=== PATIENT | male | born 1970 | race African-American/Black ===

== ENCOUNTER 2020-10-13 12:53 | Outpatient (CLI) | payer MEDICARE, MEDICAID, SELFPAY ==
--- NOTE | ~2020-10-13 | US_ITS ---
EXAMINATION: US venous doppler LE RT EXAM DATE: 10/13/2020 13:37 INDICATION: Right leg pain and swelling. TECHNIQUE: Multiple grayscale, color flow and Doppler images of the right lower extremity deep venous system were obtained and reviewed. There is no prior study for comparison. FINDINGS: The right common femoral, femoral and profunda veins demonstrate normal color flow, respira tory variation, augmentation and compressibility. Compressibility, color flow confirmed within the r ight popliteal, posterior tibial, peroneal, and greater saphenous veins. IMPRESSION: 1. No right lower extremity deep venous thrombosis. Reviewed, dictated and finalized at location B. 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
== END 2020-10-13 12:54 | disposition home or self-care (01) ==
PROVIDERS: PCP Family Medicine; Visit Provider Physician Assistant Surgical
DX: M79.89 Other specified soft tissue disorders (principal)
CPT/HCPCS: 93971

== ENCOUNTER 2021-03-10 07:46 | Emergency (ER) | payer MEDICARE, MEDICAID, SELFPAY ==
[2021-03-10] VITALS (39 sets, daily range): BP systolic 98–147; BP diastolic 71–82; PULSE 72–88; RESP 12–37; TEMP 36.3–36.8; O2SAT 91–100
--- NOTE | ~2021-03-10 | CT_ITS ---
EXAMINATION: CTA chest PE abdomen pel DATE: 03/10/2021 12:18 INDICATION: Shortness of breath and cough, COVID 19, lower abdominal pain TECHNIQUE: Computed tomography angiography (CTA) of the chest was performed with 100 mL Omnipaque-350 intravenous contrast timed to evaluate the pulmonary arteries. Subsequent postcontrast images of the abdomen and pelvis are obtained. Coronal maximum intensity projection 3D-reconstructions were create d by the technologist. The dose-length product (DLP) was 2577.10 mGy-cm. Automated exposure control a nd iterative reconstruction technique were employed. COMPARISON: None. FINDINGS: CTA CHEST: The pulmonary arteries are well-opacified. No pulmonary embolism is identified. There are patchy groundglass opacities of the lungs. No pleural effusion or pneumothorax is identified. Althoug h evaluation is limited by streak artifact, there appears to be mild mediastinal and bilateral hilar lymphadenopathy, likely reactive. The heart size is normal. There are bridging osteophytes at multipl e levels in the thoracic spine, consistent with diffuse idiopathic skeletal hyperostosis (DISH). ABDOMEN/PELVIS CT: The liver, spleen, gallbladder, and adrenal glands are normal. There is fatty repl acement of much of the pancreas. The left kidney is unremarkable. There is a 1.7 cm cyst of the right kidney. No pathologically enlarged abdominal or pelvic lymph nodes are identified. There is no free intraperitoneal gas or evidence of bowel obstruction. There is a small amount of inflammatory change in the mid descending colon. There is severe lumbar spondylosis. IMPRESSION: 1. No pulmonary embolism. Groundglass opacities of the lungs, consistent with COVID 19 pneumonia. 2. Focal area of inflammatory change in the mid descending colon, likely diverticulitis. Reviewed, dictated and finalized at location A. IMPRESSION: 1. No pulmonary embolism. Groundglass opacities of the lungs, consistent with C OVID 19 pneumonia. 2. Focal area of inflammatory change in the mid descending colon, likely divert iculitis.
--- NOTE | ~2021-03-10 | XR_ITS ---
EXAMINATION: XR chest 1V portable DATE: 03/10/2021 08:54 INDICATION: COVID positive presenting with cough and shortness of breath TECHNIQUE: frontal view of the chest was obtained. COMPARISON: Chest radiograph dated 06/11/2013 FINDINGS: Small lung volumes. Airspace opacities in the left mid to lower lung zone and in the right infrahilar region, lateral with air bronchograms, suspicious for pneumonia. No pleural effusion or pneumothorax . Cardiomegaly. IMPRESSION: 1. Patchy airspace opacities in the left mid and bilateral lower lung zones concerning for pneumonia. Reviewed, dictated and finalized at location A. IMPRESSION: 1. Patchy airspace opacities in the left mid and bilateral lower lung zones con cerning for pneumonia.
--- NOTE | 2021-03-10 07:51 | ECG_ITS ---
Measurements Intervals [place] Rate: 84 P: 23 MI: 140 QRS: 20 QRSD: 80 T: 28 QT: 383 QTc: 453 Interpretive Statements SINUS RHYTHM EARLY PRECORDIAL R/S TRANSITION BASELINE ARTIFACT- I, II, III, AVF, V1-V6 BORDERLINE ECG Electronically Signed On 03-10-2021 8:10:18 CDT by Jose Price D.O.
[2021-03-10 08:10] LABS: Basophils Percent Auto 0.2 % (0.2-1.2); Hematocrit 41.9 % (42.0-52.0); Hemoglobin 13.8 g/dL (14.0-18.0); Immature Granulocyte Absolute 0.03 K/mm3 (0.00-0.031); Immature Granulocyte Percent A 0.5 % (0-0.5); Lymphocytes Percent Auto 31.7 % (18.3-44.2); Mean Corpuscular HGB Conc 32.9 g/dl (32-36); Mean Corpuscular Hemoglobin 30.2 pg (26-34); Mean Corpuscular Volume 91.7 fl (80-100); Mean Platelet Volume 12.1 fl (7.4-10.4); Monocytes Absolute Auto 0.5 K/mm3 (0.1-0.6); Monocytes Percent Auto 9.3 % (2.6-8.5); Neutrophils Absolute Auto 3.3 K/mm3 (1.3-6.7); Neutrophils Percent Auto 58.3 % (45.5-73.1); Platelet Count Result 123 k/mm3 (150-375); Red Blood Count 4.57 M/mm3 (4.6-6.20); Red Cell Distribution Width 13.5 % (11.5-14.5); White Blood Count 5.7 K/mm3 (4.5-10.0)
[2021-03-10 08:19] LABS: Anion Gap 12 mmol/L (8-16); Blood Urea Nitrogen 11 mg/dL (9-20); Calcium 8.7 mg/dL (8.4-10.2); Carbon Dioxide 18 mmol/L (22-30); Chloride 108 mmol/L (98-107); Estimated CRCL calculation 133 ml/min; Estimated Glomerular Filt Rate > 60; Glucose 122 mg/dL (65-110); Lactic Acid Reflex 1.4 mmol/L (0.7-2.1); Potassium 4.1 mmol/L (3.4-5.0); Sodium 138 mmol/L (137-145)
[2021-03-10] MEDS: ONDANSETRON INJ 4 MG/2 ML VIAL IV PUSH (09:54)
[2021-03-10] MEDS: SODIUM CHLORIDE 0.9% IV 1,000 ML 999 ML IV CONT (09:55)
[2021-03-10 10:03] LABS: Lipase 106 U/L (23-300)
--- NOTE | 2021-03-10 10:09 | ED.GENADULT ---
HPI - General Adult General Chief complaint: Shortness of Breath/Dyspnea Stated complaint: SOB Time Seen by Provider: 03/10/21 09:04 Source: patient History of Present Illness HPI narrative: Patient is a 51 y/o male complaining of bilateral lower abdominal pain, vomiting, diarrhea for 1 week. He describes his pain as sharp and rate it as 10/10. There is no pain radiation. There is no known alleviating or exacerbating factor. He also has cough and SOB. He tested positive for COVID on 03/01. Related Data Allergies Allergy/AdvReac Type Severity Reaction Status Date / Time No Known Allergies Allergy Verified 03/10/21 13:19 Review of Systems Constitutional: Constitutional: Denies chills, Denies fever(s), Denies headache(s) and Denies weakness Eyes: Eyes: Denies blurry vision ENT: Denies headache(s) and Denies neck pain Cardiovascular: Cardiovascular: Reports chest pain and Reports dyspnea Respiratory: Respiratory: Reports cough and Reports dyspnea Gastrointestinal: Gastrointestinal: Reports abdominal pain, Reports diarrhea, Reports nausea and Reports vomiting Genitourinary: Genitourinary: Denies hematuria and Denies dysuria Musculoskeletal: Musculoskeletal: Denies back pain and Denies neck pain Neurologic: Denies headache(s) and Denies weakness Exam Const: General: no acute distress and well developed Orientation/consciousness: oriented to person, oriented to place, oriented to time and patient oriented x3 HENMT: Head: normocephalic Ears: external ears normal General nose exam: Normal external nose present Eyes: General: appearance normal, both eyes and all related structures Conjunctivae: conjunctivae normal Neck: Neck: normal visual inspection and full ROM Chest: Chest palpation & inspection: normal inspection of the chest and no tenderness Resp: Effort & Inspection: normal respiratory effort Auscultation: clear to auscultation bilaterally Cardio: Rate: regular rate Rhythm: regular rhythm GI: GI Palp: No abdominal tenderness and Yes Soft to palpation Skin: General skin exam: normal color and turgor normal Neuro: General: oriented to person, oriented to place, oriented to time and patient oriented x3 Cognition (Neuro): normal cognition Extrem: General: normal to inspection, full ROM and no pedal edema Psych: Appearance: grossly normal Mental Status: mental status grossly normal Affect: normal affect Course Vital Signs Vital signs: Vital Signs Temperature 36.8 C 03/10/21 07:52 Pulse Rate 86 03/10/21 07:52 Respiratory Rate 37 H 03/10/21 07:52 Blood Pressure 147/79 H 03/10/21 07:52 Pulse Oximetry 97 03/10/21 07:52 Temperature 36.8 C 03/10/21 07:52 Pulse Rate 82 03/10/21 15:39 Respiratory Rate 22 H 03/10/21 15:39 Blood Pressure 98/75 L 03/10/21 15:39 Pulse Oximetry 98 03/10/21 15:39 Medical Decision Making Vital Signs Vital Signs: Vital Signs Temperature 36.8 C 03/10/21 07:52 Pulse Rate 86 03/10/21 07:52 Respiratory Rate 37 H 03/10/21 07:52 Blood Pressure 147/79 H 03/10/21 07:52 Pulse Oximetry 97 03/10/21 07:52 Temperature 36.8 C 03/10/21 07:52 Pulse Rate 82 03/10/21 15:39 Respiratory Rate 22 H 03/10/21 15:39 Blood Pressure 98/75 L 03/10/21 15:39 Pulse Oximetry 98 03/10/21 15:39 Lab Data Result diagrams: 03/10/21 08:00 03/10/21 08:00 Labs: Lab Results 03/10/21 03/10/21 03/10/21 Range/Units 08:00 08:00 08:00 WBC 5.7 (4.5-10.0) K/mm3 RBC 4.57 L (4.6-6.20) M/mm3 Hgb 13.8 L (14.0-18.0) g/dL Hct 41.9 L (42.0-52.0) % MCV 91.7 (80-100) fl MCH 30.2 (26-34) pg MCHC 32.9 (32-36) g/dl RDW 13.5 (11.5-14.5) % Plt Count 123 L (150-375) k/mm3 MPV 12.1 H (7.4-10.4) fl Immature Gran % (Auto) 0.5 (0-0.5) % Neut % (Auto) 58.3 (45.5-73.1) % Lymph % (Auto) 31.7 (18.3-44.2) % [place] % (Auto) 9.3 H (2.6-8.5) % Eos % (Auto) 0.0
[2021-03-10 11:03] LABS: D Dimer 0.63 ug/mL (<0.48)
[2021-03-10] MEDS: CIPROFLOXACIN 400 MG/D5W 200ML 200 ML 200 MG IVPB (14:29)
[2021-03-10] MEDS: ACETAMINOPHEN 325 MG TABLET 650 MG PO (14:29)
[2021-03-10] MEDS: metroNIDAZOLE 500 MG/ISO 100ML 500 MG/100 ML BAG 100 MG IVPB (15:39)
== END 2021-03-10 17:00 | disposition home or self-care (01) ==
PROVIDERS: Emergency Provider Emergency Medicine; PCP Internal Medicine Gastroenterology
DX: U07.1 COVID-19 (principal); J12.82 Pneumonia due to coronavirus disease 2019; K57.92 Diverticulitis of intestine, part unspecified, without perforation or abscess without bleeding
CPT/HCPCS: 36415; 71045; 71275; 74177; 80048; 83605; 83690; 85025; 85380; 87040; 93005; 96361; 96365; 96367; 96375; 99284; A9270; J0744; J2405; J7030; Q9967

== ENCOUNTER 2021-07-10 21:16 | Emergency (ER) | payer MEDICARE, MEDICAID, SELFPAY ==
--- NOTE | ~2021-07-10 | CT_ITS ---
EXAMINATION: CT abdomen pelvis w con DATE: 07/11/2021 03:08 INDICATION: Left lower quadrant abdominal pain. TECHNIQUE: Computed tomography (CT) of the abdomen and pelvis was performed with 100 mL Omnipaque 350 intravenous contrast. Automated exposure control and iterative reconstruction technique were employe d. The dose-length product was 1543.80 mGy-cm. COMPARISON: CT abdomen and pelvis 03/10/2021 FINDINGS: The visualized portions of the lung bases demonstrate mild atelectasis in left lower lobe. No pleural effusion. The heart size is normal. No pericardial effusion. The liver, spleen, pancreas, and adrenal glands are normal. There is a 19 mm cyst in right kidney. Left kidney is normal. There ar e scattered diverticula in the colon. There is fat stranding around a diverticulum of distal descendi ng colon, consistent with diverticulitis. There are no dilated loops of bowel. The appendix is not vi sualized. There are no pathologically enlarged lymph nodes. There is no free intraperitoneal fluid. T here is moderate lumbar spondylosis. There are bridging endplate osteophytes at multiple levels in th e thoracic spine, consistent with diffuse idiopathic skeletal hyperostosis (DISH). IMPRESSION: 1. Acute diverticulitis of distal descending colon. No perforation or abscess. Reviewed, dictated and finalized at location A. 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
[2021-07-10 21:34] VITALS: BP 152/93; PULSE 74; RESP 20; TEMP 36.3; O2SAT 98
[2021-07-11 02:00] VITALS: BP 138/88; PULSE 65; RESP 16; O2SAT 98
[2021-07-11 02:22] LABS: Basophils Percent Auto 0.4 % (0.2-1.2); Eosinophils Absolute Auto 0.1 K/mm3 (0-0.3); Eosinophils Percent Auto 1.5 % (0-4.4); Hematocrit 38.5 % (42.0-52.0); Hemoglobin 12.7 g/dL (14.0-18.0); Immature Granulocyte Absolute 0.01 K/mm3 (0.00-0.031); Immature Granulocyte Percent A 0.1 % (0-0.5); Lymphocytes Percent Auto 48.1 % (18.3-44.2); Mean Corpuscular Hemoglobin 32.1 pg (26-34); Mean Corpuscular Volume 97.2 fl (80-100); Mean Platelet Volume 11.8 fl (7.4-10.4); Monocytes Absolute Auto 0.8 K/mm3 (0.1-0.6); Monocytes Percent Auto 10.7 % (2.6-8.5); Neutrophils Absolute Auto 2.8 K/mm3 (1.3-6.7); Neutrophils Percent Auto 39.2 % (45.5-73.1); Platelet Count Result 203 k/mm3 (150-375); Red Blood Count 3.96 M/mm3 (4.6-6.20); Red Cell Distribution Width 14.1 % (11.5-14.5); White Blood Count 7.3 K/mm3 (4.5-10.0)
[2021-07-11 02:41] LABS: Alanine Aminotransferase 24 U/L (4-50); Albumin Level 4.3 g/dL (3.5-5.1); Alkaline Phosphatase 84 U/L (38-126); Anion Gap 7 mmol/L (8-16); Aspartate Amino Transferase 37 U/L (17-59); Bilirubin,Total 0.5 mg/dL (0.2-1.3); Blood Urea Nitrogen 18 mg/dL (9-20); Calcium 9.1 mg/dL (8.4-10.2); Carbon Dioxide 24 mmol/L (22-30); Chloride 107 mmol/L (98-107); Estimated CRCL calculation 141 ml/min; Estimated Glomerular Filt Rate > 60; Glucose 107 mg/dL (65-110); Lipase 81 U/L (23-300); Potassium 4.7 mmol/L (3.4-5.0); Sodium 138 mmol/L (137-145)
[2021-07-11] MEDS: SODIUM CHLORIDE 0.9% IV 1,000 ML 999 ML IV CONT (03:28)
[2021-07-11] MEDS: ONDANSETRON INJ 4 MG/2 ML VIAL IV PUSH (03:28)
[2021-07-11] MEDS: cefTRIAXone 1 GM VIAL 0.5 GM IM (03:29)
[2021-07-11] MEDS: LIDOCAINE HCL 1% LOCAL INJ 20 ML VIAL (03:29)
--- NOTE | 2021-07-11 03:53 | ED.ABDPAIN ---
HPI - Abdominal Pain General Chief Complaint: Abdominal Pain Stated Complaint: abd pain Time Seen by Provider: 07/11/21 02:27 Source: patient History of Present Illness HPI narrative: Patient presents with left lower quadrant abdominal pain associated with diarrhea. Patient reports his symptoms started last night and feels similar to his prior diverticulitis. Pain is achy, constant, worse with moving around, no radiation. Patient would also like to be evaluated for pain with urination. Reports he is had unprotected sex with a new partner and few days after he noted pain with urination has not noted any urethral discharge. He denies any nausea vomiting or fevers. Related Data Allergies Allergy/AdvReac Type Severity Reaction Status Date / Time No Known Allergies Allergy Verified 07/10/21 21:38 Review of Systems Review of Systems: CONSTITUTIONAL: Denies fever, chills, or sweats. EYES: Denies visual changes, redness, or discharge. ENT: Denies rhinorrhea, congestion, sore throat, or otalgia. CARDIOVASCULAR: Denies chest pain, palpitations, or edema. RESPIRATORY: Denies cough or dyspnea. GASTROINTESTINAL: Reports abdominal pain and diarrhea GENITOURINARY: Denies hematuria. SKIN: Denies rash or itching. MUSCULOSKELETAL: Denies back pain, joint pain, or myalgia. NEUROLOGIC: Denies headache, numbness, dizziness, or weakness. PSYCHIATRIC: Denies anxiety or depression. All systems reviewed & are unremarkable except as noted in HPI and below PMFSH Past Medical History Medical History (Updated 07/11/21 @ 06:09 by Bonilla Ward MD) Diverticulitis Social History Social History (Updated 07/11/21 @ 03:55 by Bonilla Ward MD) Substance use: never Exam Narrative: GENERAL: Well-appearing, well-nourished, and in no acute distress. HEAD: Normocephalic, atraumatic. EYES: PERRLA and EOMI. ENT: Nares clear, no rhinorrhea or epistaxis. Mucous membranes moist. NECK: Supple. No masses. No JVD CHEST: Clear to auscultation. No respiratory distress. No wheezes rales or rhonchi HEART: Regular rate and rhythm. No murmur heard. Normal peripheral pulses. ABDOMEN: Moderate tenderness with palpation of the left lower quadrant soft, nondistended, normal active bowel sounds. : Mild tenderness with palpation of the head of the penis no edema no erythema no purulent discharge no ulcerations EXTREMITIES: Normal range of motion. No edema. SKIN: Warm, dry, no rash. NEURO: No focal deficits. Alert and oriented x3. PSYCH: Normal mood and affect. Course Reevaluation(s) Reevaluation #1: Patient is resting comfortably results and plan reviewed with patient. Patient comfortable outpatient plan. Date: 07/11/21 Time: 06:05 Vital Signs Vital signs: Vital Signs Temperature 36.3 C L 07/10/21 21:34 Pulse Rate 74 07/10/21 21:34 Respiratory Rate 20 07/10/21 21:34 Blood Pressure 152/93 H 07/10/21 21:34 Pulse Oximetry 98 07/10/21 21:34 Temperature 36.3 C L 07/10/21 21:34 Pulse Rate 73 07/11/21 06:15 Respiratory Rate 18 07/11/21 06:15 Blood Pressure 132/85 07/11/21 06:15 Pulse Oximetry 99 07/11/21 06:15 MDM - Abdominal Pain MDM Narrative Medical decision making narrative: H&P as above, vss, pt looks clinically well, exam with left lower quadrant abdominal pain, labs clinically unremarkable, img with acute diverticulitis, additional labs/img considered, symptomatic relief available as needed, on reevaluation pt continues to looks clinically well. Suspect diverticulitis. Patient is also concerned about his dysuria will treat empirically, dns perforation, abscess, severe sepsis. plan to tx/monitor as op w/ pcm f/u findings/plan discussed with pt, pt agree/comfortable with plan, return precautions given Lab Data Result diagrams: 07/11/21 02:16 07/11/21 02:17 Labs: Lab Results 07/11/21 07/11/21 07/11/21 Range/Units 02:16 02:17 03:12 WBC 7.3 (4.5-10.0) K/mm3 RBC 3.96 L
[2021-07-11 04:08] LABS: Add Urine Microscopic? YES; Appearance Urine Clear (Clear); Bilirubin Urine Negative (Negative); Blood Urine Negative (Negative); Color Urine Yellow (Yellow); Glucose Urine UA Negative (Negative); Ketones Urine Negative (Negative); Leukocyte Esterase Ur Trace LEU/UL (Negative); Mucus Urine Rare /lpf; Nitrate Urine Negative (Negative); Protein Urine Negative (Negative); RBC Urine 0-2 /hpf (0-2); Specific Grav Ur 1.026 (1.001-1.035); Squamous Epithelial Cell Urine Rare /hpf (Few); Urobilinogen Urine Negative mg/dL (<2.0)
[2021-07-11 04:34] VITALS: BP 137/91; PULSE 73; RESP 18; O2SAT 100
[2021-07-11 06:15] VITALS: BP 132/85; PULSE 73; RESP 18; O2SAT 99
== END 2021-07-11 06:16 | disposition home or self-care (01) ==
PROVIDERS: Emergency Provider Emergency Medicine; PCP Internal Medicine Gastroenterology
DX: K57.92 Diverticulitis of intestine, part unspecified, without perforation or abscess without bleeding (principal); R30.0 Dysuria; Z87.19 Personal history of other diseases of the digestive system
CPT/HCPCS: 36415; 74177; 80053; 81001; 83690; 85025; 87491; 87591; 96361; 96372; 96374; 99284; J0696; J2405; J7030; Q9967

== ENCOUNTER 2022-02-25 08:29 | Emergency (ER) | payer MEDICARE, MEDICAID, SELFPAY ==
[2022-02-25] VITALS (25 sets, daily range): BP systolic 119–145; BP diastolic 81–90; PULSE 63–72; RESP 0–23; TEMP 36.9; O2SAT 97–100
--- NOTE | ~2022-02-25 | CT_ITS ---
EXAMINATION: CTA chest abdomen pelvis DATE: 02/25/2022 11:16 INDICATION: Worsening chest and abdomen pain TECHNIQUE: Computed tomography (CT) of the chest, abdomen and pelvis was performed with 100 CC Omnipa que 300 intravenous contrast. Automated exposure control and iterative reconstruction technique were employed. Exam dose: 1769.85 mGy-cm total exam DLP. COMPARISON: None. FINDINGS: Mild gynecomastia, right greater than left. Normal heart size. No pericardial or pleural effusion. No thoracic aortic aneurysm or dissection. No hilar or mediastinal mass lesion or lymphadenopathy. No pulmonary infiltrate or consolidation or pulmonary mass lesion is detected. 5 mm probable right hepatic cyst. The liver is otherwise unremarkable. The gallbladder is present. No gallbladder wall thickening or pericholecystic fluid or fat stranding. No bile duct dilatation. No p ancreatic mass lesion, calcification or ductal dilatation. Normal splenic size. Normal morphology of the adrenal glands. 2.1 cm right renal cyst. The kidneys are otherwise unremarkable. No urinary tract calculus or hydrour eteronephrosis. The urinary bladder is unremarkable. Mild prostate calcification. Normal caliber of the abdominal aorta. No abdominal aortic aneurysm or dissection. No intraperitoneal or retroperitoneal or pelvic mass lesion or adenopathy or ascites. Minimal diverticulosis of the colon. There is some fat stranding in the pericolic soft tissues at the mid to distal descending colon which may represent mild focal diverticulitis. No abscess or free air is detected. Prominent degenerative disc disease in the lower cervical spine. Diffuse idiopathic skeletal hyperost osis of the thoracic spine. Fusion at the L3-4 intervertebral disc. Degenerative disc disease of the lumbar spine. No suspicious osteolytic or osteoblastic lesions are noted. IMPRESSION: No thoracic or abdominal aortic aneurysm or dissection Mild pericolic fat stranding at the mid to distal descending colon suggesting possible mild diverticu litis Mild diverticulosis of the colon 5 mm hepatic cyst 2.1 cm right renal cyst Reviewed, dictated and finalized at Location [facility]. Reviewed, dictated and finalized at location B. IMPRESSION: No thoracic or abdominal aortic aneurysm or dissection Mild pericolic fat stranding at the mid to distal descending colon suggesting p ossible mild diverticulitis Mild diverticulosis of the colon 5 mm hepatic cyst 2.1 cm right renal cyst
--- NOTE | ~2022-02-25 | XR_ITS ---
EXAMINATION: XR chest 2V 02/25/2022 09:14 INDICATION: Midsternal chest pain PROCEDURE: 2 view chest COMPARISON: 03/10/2021 FINDINGS: The lungs are clear. The cardiomediastinal silhouette is within normal limits. There are no pleural effusions. There is no pneumothorax suspected. IMPRESSION: 1: NO ACUTE CARDIOPULMONARY DISEASE. Reviewed, dictated and finalized at location L.
--- NOTE | 2022-02-25 08:38 | ECG_ITS ---
Measurements Intervals [place] Rate: 69 P: 45 MS: 163 QRS: 26 QRSD: 84 T: 25 QT: 383 QTc: 413 Interpretive Statements SINUS RHYTHM NONSPECIFIC T-WAVE ABNORMALITY- INF/LAT LEADS BASELINE ARTIFACT- I, II, III, AVR, AVL, AVF, V3-V6 BORDERLINE ECG Electronically Signed On 02-25-2022 9:48:28 CDT by Jose Price D.O.
[2022-02-25 09:00] LABS: Basophils Percent Auto 0.8 % (0.2-1.2); Eosinophils Percent Auto 0.4 % (0-4.4); Hematocrit 40.8 % (42.0-52.0); Immature Granulocyte Absolute 0.01 K/mm3 (0.00-0.031); Immature Granulocyte Percent A 0.2 % (0-0.5); Lymphocytes Absolute Auto 2.62 K/mm3 (0.9-3.2); Lymphocytes Percent Auto 50.8 % (18.3-44.2); Mean Corpuscular HGB Conc 31.9 g/dl (32-36); Mean Corpuscular Hemoglobin 30.7 pg (26-34); Mean Corpuscular Volume 96.5 fl (80-100); Monocytes Absolute Auto 0.6 K/mm3 (0.1-0.6); Monocytes Percent Auto 12.2 % (2.6-8.5); Neutrophils Absolute Auto 1.8 K/mm3 (1.3-6.7); Neutrophils Percent Auto 35.6 % (45.5-73.1); Platelet Count Result 210 k/mm3 (150-375); Red Blood Count 4.23 M/mm3 (4.6-6.20); Red Cell Distribution Width 13.3 % (11.5-14.5); White Blood Count 5.2 K/mm3 (4.5-10.0)
[2022-02-25 09:10] LABS: Alanine Aminotransferase 24 U/L (6-50); Albumin Level 4.3 g/dL (3.5-5.1); Alkaline Phosphatase 72 U/L (38-126); Anion Gap 5 mmol/L (8-16); Aspartate Amino Transferase 32 U/L (17-59); Bilirubin,Total 0.7 mg/dL (0.2-1.3); Blood Urea Nitrogen 13 mg/dL (9-20); Calcium 8.7 mg/dL (8.4-10.2); Carbon Dioxide 27 mmol/L (22-30); Chloride 108 mmol/L (98-107); Estimated CRCL calculation 147 ml/min; Estimated Glomerular Filt Rate > 60; Glucose 102 mg/dL (65-110); Lipase 73 U/L (23-300); Sodium 140 mmol/L (137-145)
[2022-02-25 09:12] LABS: INR 1.1; Prothrombin Time 13.7 Seconds (11.1-14.7)
[2022-02-25 09:13] LABS: Partial Thromboplastin Time 29.2 SECONDS (22.3-36.8)
[2022-02-25 09:22] LABS: Troponin I < 0.012 ng/mL (0.000-0.034)
--- NOTE | 2022-02-25 10:51 | ED.CHESTPAIN ---
HPI - Chest Pain General Chief Complaint: Chest Pain Stated Complaint: ABD Pain, Chest Pain Yesterday Time Seen by Provider: 02/25/22 08:47 Source: patient, RN notes reviewed and old records reviewed Mode of arrival: ambulatory Limitations: no limitations History of Present Illness HPI narrative: This is a 52 year old male with history of hypertension, chronic back pain, and ulcerative colitis who presents for evaluation of chest pain and abdominal pain. Patient has been having intermittent midsternal chest tightness since Tuesday. He reports his chest pain will last for a few minutes and it will resolve. He denies pain with exertion or breathing. He denies shortness of breath. He also reports lower abdominal pain . He states this pain is similar to his chronic pain due to ulcerative colitis/diverticulitis. He denies nausea, vomiting, fever, cough or diarrhea. He denies leg swelling or calf pain. He denies heart history. MD complaint: chest pain Related Data Allergies Allergy/AdvReac Type Severity Reaction Status Date / Time No Known Allergies Allergy Verified 02/25/22 08:42 Review of Systems Review of Systems: CONSTITUTIONAL: Denies fever, chills, or sweats. EYES: Denies visual changes, redness, or discharge. ENT: Denies rhinorrhea, congestion, sore throat, or otalgia. CARDIOVASCULAR: Denies palpitations, or edema. RESPIRATORY: Denies cough or dyspnea. GASTROINTESTINAL: Denies nausea, vomiting, or diarrhea. GENITOURINARY: Denies dysuria or hematuria. SKIN: Denies rash or itching. MUSCULOSKELETAL: Denies back pain, joint pain, or myalgia. NEUROLOGIC: Denies headache, numbness, or weakness. PSYCHIATRIC: Denies anxiety or depression. All systems reviewed & are unremarkable except as noted in HPI and below PMFSH Past Medical History Medical History (Updated 02/25/22 @ 19:15 by Ericka Alicia MD) Diverticulitis Hypertension Surgical History Surgical History (Updated 02/25/22 @ 19:16 by Ericka Alicia MD) No pertinent past surgical history Social History Social History (Updated 02/25/22 @ 19:16 by Ericka Alicia MD) Smoking status: Never smoker Substance use: never Exam Narrative: GENERAL: Well-appearing, well-nourished, and in no acute distress. HEAD: Normocephalic, atraumatic EYES: PERRLA and EOMI, conjunctiva clear without discharge EARS: TM's clear bilaterally without erythema or dullness NOSE: Nares clear, no rhinorrhea or epistaxis THROAT:Mucous membranes moist, Oropharynx normal without erythema, exudate, peritonsillar swelling or fluctuance NECK: Supple, without lymphadenopathy or mass RESPIRATORY: No respiratory distress, Airway patent, Respirations non-labored, Clear to auscultation without rales, rhonchi or wheeze HEART: Regular rate and rhythm. No murmur heard. Normal peripheral pulses. ABDOMEN: Soft,LLQ abdominal pain, nondistended, normal active bowel sounds. No masses. No rebound or guarding, No organomegaly. EXTREMITIES: No edema, normal strength with full range of motion. SKIN: Warm, dry, normal color without rash NEURO: Alert and oriented x3. CN 2-12 grossly intact. No focal deficits. PSYCH: Normal mood and affect. Course Reevaluation(s) Reevaluation #1: Patient has no complaints. He does not have chest pain. His pain is atypical and not anginal. His CT shows diverticulitis but no Aortic aneuryms or dissection. Heart score is low risk so I discussed discharge and he will need to follow up with PCP. Date: 02/25/22 Time: 12:49 Vital Signs Vital signs: Vital Signs Temperature 98.5 F 02/25/22 08:33 Pulse Rate 71 02/25/22 08:33 Respiratory Rate 12 02/25/22 08:33 Blood Pressure 136/81 02/25/22 08:33 Pulse Oximetry 99 02/25/22 08:33 Oxygen Delivery Room Air 02/25/22 08:33 Temperature 98.5 F 02/25/22 08:33 Pulse Rate 69 02/25/22 13:00 Respiratory Rate 13 02/25/22 13:00 Blood Pressure 138/90 02/25/22 13:00
[2022-02-25 12:06] LABS: Troponin I < 0.012 ng/mL (0.000-0.034)
== END 2022-02-25 14:08 | disposition home or self-care (01) ==
PROVIDERS: Emergency Provider General Practice; PCP Internal Medicine Gastroenterology
DX: R07.89 Other chest pain (principal); K57.32 Diverticulitis of large intestine without perforation or abscess without bleeding; I10 Essential (primary) hypertension; K51.90 Ulcerative colitis, unspecified, without complications; K57.90 Diverticulosis of intestine, part unspecified, without perforation or abscess without bleeding; K76.89 Other specified diseases of liver; N28.1 Cyst of kidney, acquired; R94.31 Abnormal electrocardiogram [ECG] [EKG]
CPT/HCPCS: 36415; 71046; 71275; 74174; 80053; 83690; 84484; 85025; 85610; 85730; 93005; 99284; Q9967

== ENCOUNTER 2022-10-22 07:39 | Emergency (ER) | payer MEDICARE, MEDICAID, SELFPAY ==
--- NOTE | ~2022-10-22 | CT_ITS ---
EXAMINATION: CT abdomen pelvis w con DATE: 10/22/2022 08:57 INDICATION: Abdominal pain TECHNIQUE: Computed tomography (CT) of the abdomen and pelvis was performed with 100 mL Omnipaque-350 intravenous contrast. Automated exposure control and iterative reconstruction technique were employe d. The dose-length product was 1557.99 mGy-cm. COMPARISON: 02/25/2022, 07/11/2021 and 03/10/2021 FINDINGS: 1 lungs are clear. Heart size is normal. No pericardial or pleural effusion. Liver, gallbladder, sple en, left kidney and bilateral adrenal glands are normal. 1.9 cm right renal cyst. Moderate fatty atro phy of the pancreas. No interval change in mild fat stranding associated with a diverticulum at the m id descending colon which is minimal remained unchanged on multiple CT studies dating back to likely representing scarring related to chronic diverticulitis. Bowels including the appendix are o therwise normal. Bladder is normal. No free intraperitoneal gas or fluid. No pathologically enlarged abdominal or pelvic lymphadenopathy. Moderate thoracolumbar spondylosis with bridging osteophytes at multiple levels in the lower thoracic spine, consistent with diffuse idiopathic skeletal hyperostosis (DISH) as well as anterior fusion at L4-L5. IMPRESSION: 1. Stable appearance of mild stranding associated with a diverticulum at the mid descending colon on multiple studies dating back to 03/10/2021 which would favor scarring related to chronic rather than ac kiana diverticulitis. No other acute intra-abdominal/pelvic process. Reviewed, dictated and finalized at location B. IMPRESSION: 1. Stable appearance of mild stranding associated with a diverticulum at the mi d descending colon on multiple studies dating back to 03/10/2021 which would favo r scarring related to chronic rather than acute diverticulitis. No other acute intra-abdominal/pelvic process.
[2022-10-22 07:42] VITALS: BP 116/70; PULSE 63; RESP 16; TEMP 36.4; O2SAT 100
--- NOTE | 2022-10-22 08:10 | ED.ABDPAIN ---
HPI - Abdominal Pain General Chief Complaint: Abdominal Pain Stated Complaint: abdominal pain- colitis Time Seen by Provider: 10/22/22 08:00 Source: RN notes reviewed History of Present Illness HPI narrative: Patient presents emergency department from home for abdominal pain. Patient states pain began approximately 2 AM this morning. The pain is located the bilateral lower abdomen worse in the left side than the right.. States the pain is described as sharp and stabbing. It is associate with nausea. Patient states he does have a history of diverticulitis. States he has not taken anything for the pain. States that there is no radiation of the pain to the back he denies having any diarrhea Related Data Allergies Allergy/AdvReac Type Severity Reaction Status Date / Time No Known Allergies Allergy Verified 10/22/22 08:01 Review of Systems Review of Systems: Gen.: Denies fevers or chills ENT: Denies congestion Respiratory: Denies shortness of breath or cough CV: Denies chest pain or palpitations GI: See HPI Musculoskeletal: Denies back pain or muscle pain Neuro: Denies numbness, tingling, weakness or focal weakness Skin: Denies rash Except as documented, all other systems reviewed and negative [facility] Past Medical History Medical History Diverticulitis Hypertension Surgical History Surgical History (Updated 02/25/22 @ 19:16 by Ericka Alicia MD) No pertinent past surgical history Social History Social History Smoking status: Never smoker Substance use: never Exam Narrative: APPEARANCE: No acute distress, nontoxic, resting in bed EYES: EOMI HEENT: Normocephalic, atraumatic, OMM RESPIRATORY: No respiratory distress Clear to auscultation bilaterally with no rhonchi wheezing or rales. CARDIOVASCULAR: Regular rate and rhythm without murmurs rubs or gallops. ABDOMINAL: Soft, nondistended, tender to palpation left lower quadrant and right lower quadrant no tenderness in the right upper quadrant left upper quadrant no rebound or guarding MUSCULOSKELETAl: Moves all extremities. No clubbing, cyanosis or edema. NEURO: Awake and alert. Following commands, speech normal, no focal deficits SKIN:: Warm, dry. No rashes lesions or abrasions PSYCHIATRIC: Normal affect/mood, Course Course Emergency Course: Patient states that they are feeling much better at this time. States abdominal pain has improved. Repeat abdominal exam shows the patient's abdomen to be soft with no surgical abdomen present. Discussed with patient results of workup and diagnosis. Discussed need for follow-up with primary care physician, reasons to return to the emergency department in proper use of medication. Patient understands and agrees to current treatment plan Vital Signs Vital signs: Vital Signs Temperature 97.6 F 10/22/22 07:42 Pulse Rate 63 10/22/22 07:42 Respiratory Rate 16 10/22/22 07:42 Blood Pressure 116/70 10/22/22 07:42 Pulse Oximetry 100 10/22/22 07:42 Oxygen Delivery Room Air 10/22/22 07:42 Temperature 97.6 F 10/22/22 07:42 Pulse Rate 63 10/22/22 07:42 Respiratory Rate 16 10/22/22 07:42 Blood Pressure 116/70 10/22/22 07:42 Pulse Oximetry 100 10/22/22 07:42 Oxygen Delivery Room Air 10/22/22 07:42 MDM - Abdominal Pain MDM Narrative Medical decision making narrative: Patient presents for abdominal pain since 2 AM this morning history of diverticulitis.. States he does see a GI doctor and [place] Dr. Godinez. Lab work is within normal CT scan does show some chronic inflammation which could be chronic versus acute diverticulitis with history of acute pain since last night we will treat with Augmentin for diverticulitis with plan for discharge and follow-up as an outpatient the abdomen is soft no surgical on present strict return precautions discussed Differential Diagnosis Di
[2022-10-22 08:11] LABS: Appearance Urine Clear (Clear); Bacteria Urine None Seen /hpf; Bilirubin Urine Negative (Negative); Blood Urine Negative (Negative); Color Urine Dark Yellow (Yellow); Glucose Urine UA Negative (Negative); Ketones Urine Trace mg/dL (Negative); Leukocyte Esterase Ur Negative LEU/UL (Negative); Nitrate Urine Negative (Negative); Non Pathogenic Casts 0-2; Protein Urine Trace mg/dL (Negative); RBC Urine 0-2 /hpf (0-2); Specific Grav Ur 1.027 (1.001-1.035); Squamous Epithelial Cell Urine None seen /hpf (Few); WBC Urine 0-5 /hpf
[2022-10-22] MEDS: SODIUM CHLORIDE 0.9% IV 1,000 ML 999 ML IV CONT (08:18)
[2022-10-22] MEDS: ONDANSETRON INJ 4 MG/2 ML VIAL IV PUSH (08:19)
[2022-10-22] MEDS: KETOROLAC 30 MG/ML VIAL (*BKC) IV PUSH (08:19)
[2022-10-22 08:22] LABS: Alanine Aminotransferase 24 U/L (6-50); Albumin Level 4.4 g/dL (3.5-5.1); Alkaline Phosphatase 72 U/L (38-126); Anion Gap 8 mmol/L (8-16); Aspartate Amino Transferase 31 U/L (17-59); Bilirubin,Total 0.6 mg/dL (0.2-1.3); Blood Urea Nitrogen 17 mg/dL (9-20); Calcium 8.9 mg/dL (8.4-10.2); Carbon Dioxide 28 mmol/L (22-30); Chloride 104 mmol/L (98-107); Estimated CRCL calculation 127 ml/min; Estimated Glomerular Filt Rate > 60; Glucose 91 mg/dL (65-110); Lipase 127 U/L (23-300); Potassium 4.3 mmol/L (3.4-5.0); Sodium 140 mmol/L (137-145)
[2022-10-22 08:28] LABS: Add Urine Microscopic? YES
[2022-10-22 08:37] LABS: Basophils Percent Auto 0.4 % (0.2-1.2); Eosinophils Absolute Auto 0.1 K/mm3 (0-0.3); Eosinophils Percent Auto 0.7 % (0-4.4); Hematocrit 40.5 % (42.0-52.0); Immature Granulocyte Absolute 0.01 K/mm3 (0.00-0.031); Immature Granulocyte Percent A 0.1 % (0-0.5); Lymphocytes Absolute Auto 3.75 K/mm3 (0.9-3.2); Lymphocytes Percent Auto 46.8 % (18.3-44.2); Mean Corpuscular HGB Conc 32.1 g/dl (32-36); Mean Corpuscular Hemoglobin 31.5 pg (26-34); Mean Corpuscular Volume 98.1 fl (80-100); Monocytes Absolute Auto 0.9 K/mm3 (0.1-0.6); Monocytes Percent Auto 11.7 % (2.6-8.5); Neutrophils Absolute Auto 3.2 K/mm3 (1.3-6.7); Neutrophils Percent Auto 40.3 % (45.5-73.1); Platelet Count Result 218 k/mm3 (150-375); Red Blood Count 4.13 M/mm3 (4.6-6.20)
[2022-10-22] MEDS: AMOXICILLIN/CLAVULANATE K 875-125 MG TAB 1 TABLET PO (09:26)
== END 2022-10-22 09:37 | disposition home or self-care (01) ==
PROVIDERS: Emergency Provider Emergency Medicine; PCP Internal Medicine Gastroenterology
DX: K57.92 Diverticulitis of intestine, part unspecified, without perforation or abscess without bleeding (principal); I10 Essential (primary) hypertension
CPT/HCPCS: 36415; 74177; 80053; 81001; 83690; 85025; 96361; 96374; 96375; 99284; A9270; J1885; J2405; J7030; Q9967

== ENCOUNTER 2023-06-21 07:49 | Inpatient (IN) | payer MEDICARE, MEDICAID, SELFPAY ==
[2023-06-21] VITALS (7 sets, daily range): BP systolic 118–148; BP diastolic 72–83; PULSE 66–83; RESP 16–20; TEMP 36.3–36.6; O2SAT 92–99
--- NOTE | ~2023-06-21 | CT_ITS ---
EXAMINATION: CT abdomen pelvis w con DATE: 06/21/2023 10:01 INDICATION: Left abdominal pain. TECHNIQUE: Computed tomography (CT) of the abdomen and pelvis was performed with 100 mL Omnipaque 350 intravenous contrast. Automated exposure control and iterative reconstruction technique were employe d. The dose-length product was 1727.84 mGy-cm. COMPARISON: CT abdomen and pelvis 10/22/2022 FINDINGS: The visualized portions of the lung bases demonstrate mild atelectasis. No pleural effusion . The heart size is normal. No pericardial effusion. The liver, gallbladder, spleen, pancreas, adrena l glands, and left kidney are normal. There is a 2.4 cm cyst in right kidney. Again seen is a 5 mm de nsity in the descending colon. Again seen is fat stranding around the descending colon in this area. The appendix is normal. There are dilated loops of bowel with gradual transition point in right abdom en. There are no pathologically enlarged lymph nodes. There is no free intraperitoneal fluid. There a re bridging endplate osteophytes at multiple levels in the spine, consistent with diffuse idiopathic skeletal hyperostosis (DISH). There is moderate lumbar spondylosis. IMPRESSION: 1. Dilated small bowel with gradual transition point in right abdomen, consistent with adynamic ileus versus partial small bowel obstruction. 2. Chronic 5 mm density in the descending colon with chronic fat stranding around this area, consiste nt with inflammation versus scarring. Reviewed, dictated and finalized at location A. FRAME DEVELOPER IMPRESSION: 1. Dilated small bowel with gradual transition point in right abdomen, consiste nt with adynamic ileus versus partial small bowel obstruction. 2. Chronic 5 mm density in the descending colon with chronic fat stranding arou nd this area, consistent with inflammation versus scarring.
--- NOTE | ~2023-06-21 | XR_ITS ---
EXAMINATION: XR sm bowel follow through WS DATE: 06/21/2023 17:50 INDICATION: Small bowel obstruction. TECHNIQUE: Oral contrast was administered, and a time course of radiographs of the abdomen was obtain ed. Fluoroscopy of the small bowel was not performed. Fluoroscopy exposure time was 0 minutes. The to mamta number of images was 8. COMPARISON: CT abdomen and pelvis 06/21/2023 FINDINGS: There are multiple dilated loops of small bowel. Transit time from the stomach to proximal colon was approximately 4 hours. IMPRESSION: 1. Dilated small bowel with delayed transit of contrast to the colon, consistent with adynamic ileus versus partial small bowel obstruction. Reviewed, dictated and finalized at location A. NEER CHIEF IMPRESSION: 1. Dilated small bowel with delayed transit of contrast to the colon, consisten t with adynamic ileus versus partial small bowel obstruction.
--- NOTE | ~2023-06-21 | XR_ITS ---
EXAMINATION: XR abdomen obstructive series DATE: 06/23/2023 09:45 INDICATION: Small bowel obstruction. TECHNIQUE: Upright and supine views of the abdomen on 5 radiographs were obtained. COMPARISON: CT abdomen and pelvis 06/21/2023, small bowel series 06/21/2023 FINDINGS: There are dilated loops of small bowel in right abdomen. There is contrast in the colon, wh ich is decompressed. No free intraperitoneal gas. IMPRESSION: 1. Dilated small bowel with improvement from 06/21/2023, consistent with adynamic ileus versus partia l small bowel obstruction. Reviewed, dictated and finalized at location A. E HALL HOST/HOSTESS IMPRESSION: 1. Dilated small bowel with improvement from 06/21/2023, consistent with adynam ic ileus versus partial small bowel obstruction.
[2023-06-21 08:35] LABS: Appearance Urine Clear (Clear); Bacteria Urine None Seen /hpf; Bilirubin Urine Negative (Negative); Blood Urine Negative (Negative); Color Urine Yellow (Yellow); Glucose Urine UA Negative (Negative); Ketones Urine Negative (Negative); Leukocyte Esterase Ur Trace LEU/UL (Negative); Nitrate Urine Negative (Negative); Non Pathogenic Casts 0-2; Protein Urine 2+ mg/dL (Negative); Specific Grav Ur 1.027 (1.001-1.035); Squamous Epithelial Cell Urine None seen /hpf (Few); WBC Urine 0-5 /hpf; pH Urine >=9.0 (5.0-9.0)
[2023-06-21 08:36] LABS: Basophils Percent Auto 0.3 % (0.2-1.2); Eosinophils Percent Auto 0.2 % (0-4.4); Hematocrit 43.1 % (42.0-52.0); Hemoglobin 14.3 g/dL (14.0-18.0); Immature Granulocyte Absolute 0.01 K/mm3 (0.00-0.031); Immature Granulocyte Percent A 0.2 % (0-0.5); Lymphocytes Absolute Auto 2.01 K/mm3 (0.9-3.2); Mean Corpuscular HGB Conc 33.2 g/dl (32-36); Mean Corpuscular Hemoglobin 31.1 pg (26-34); Mean Corpuscular Volume 93.7 fl (80-100); Mean Platelet Volume 11.8 fl (7.4-10.4); Monocytes Absolute Auto 0.5 K/mm3 (0.1-0.6); Monocytes Percent Auto 7.3 % (2.6-8.5); Platelet Count Result 233 k/mm3 (150-375); Red Cell Distribution Width 13.7 % (11.5-14.5); White Blood Count 6.5 K/mm3 (4.5-10.0)
[2023-06-21 08:45] LABS: Alanine Aminotransferase 24 U/L (6-50); Albumin Level 4.6 g/dL (3.5-5.1); Alkaline Phosphatase 86 U/L (38-126); Anion Gap 12 mmol/L (8-16); Aspartate Amino Transferase 29 U/L (17-59); Blood Urea Nitrogen 17 mg/dL (9-20); Calcium 9.3 mg/dL (8.4-10.2); Carbon Dioxide 28 mmol/L (22-30); Chloride 102 mmol/L (98-107); Estimated CRCL calculation 143 ml/min; Estimated Glomerular Filt Rate > 60; Glucose 134 mg/dL (65-110); Lipase 81 U/L (23-300); Potassium 3.5 mmol/L (3.4-5.0); Sodium 142 mmol/L (137-145)
[2023-06-21 09:00] LABS: Add Urine Microscopic? YES
[2023-06-21] MEDS: SODIUM CHLORIDE 0.9% IV 1,000 ML 999 ML IV CONT (09:36)
[2023-06-21] MEDS: ONDANSETRON INJ 4 MG/2 ML VIAL IV PUSH ×2 (09:36→12:52)
--- NOTE | 2023-06-21 09:36 | ED.GENADULT ---
HPI - General Adult General Chief complaint: Abdominal Pain Stated complaint: N/V - history of colitis Time Seen by Provider: 06/21/23 08:53 History of Present Illness HPI narrative: Jin Espinal is a 53 y/o male who presents with reports of waking up from his sleep last night with left lower abdominal pain at 2300. He states that the pain seems to be getting worse and now he is having nausea/vomiting with his pain. Last BM was yesterday no previous surgeries on his abdomen but reports he has had colitis before and this feels similar. Denies fever/chills Related Data Allergies Allergy/AdvReac Type Severity Reaction Status Date / Time No Known Allergies Allergy Verified 10/22/22 08:01 Review of Systems Review of Systems: CONSTITUTIONAL: Denies fever, chills, or sweats. EYES: Denies visual changes, redness, or discharge. ENT: Denies rhinorrhea, congestion, sore throat, or otalgia. CARDIOVASCULAR: Denies chest pain, palpitations, or edema. RESPIRATORY: Denies cough or dyspnea. GASTROINTESTINAL: Reports abdominal pain to the left lower quadrant that started last night at 2300 now having nausea with vomiting, Last BM was yesterday. GENITOURINARY: Denies dysuria or hematuria. SKIN: Denies rash or itching. MUSCULOSKELETAL: Denies back pain, joint pain, or myalgia. NEUROLOGIC: Denies headache, numbness, dizziness, or weakness. PSYCHIATRIC: Denies anxiety or depression. PMFSH Past Medical History Medical History Diverticulitis Hypertension Surgical History Surgical History No pertinent past surgical history Social History Social History Smoking status: Never smoker Substance use: never Exam Narrative: GENERAL: Well-appearing, well-nourished, and in no acute distress. HEAD: Normocephalic, atraumatic. EYES: PERRLA and EOMI. ENT: Nares clear, no rhinorrhea or epistaxis. Mucous membranes moist. Oropharynx without tonsillar hypertrophy exudate or other lesions. NECK: Supple. No adenopathy or masses. No carotid bruits or JVD CHEST: Clear to auscultation. No respiratory distress. No wheezes rales or rhonchi HEART: Regular rate and rhythm. No murmur heard. Normal peripheral pulses. ABDOMEN: Distended, tender with palpation, bowel sounds hypoactive to the right EXTREMITIES: Normal range of motion. No edema. SKIN: Warm, dry, no rash. NEURO: No focal deficits. Alert and oriented x3. PSYCH: Normal mood and affect. Course Vital Signs Vital signs: Vital Signs Temperature 36.3 C L 06/21/23 07:51 Pulse Rate 83 06/21/23 07:51 Respiratory Rate 18 06/21/23 07:51 Blood Pressure 148/83 H 06/21/23 07:51 Pulse Oximetry 98 06/21/23 07:51 Temperature 36.3 C L 06/21/23 07:51 Pulse Rate 66 06/21/23 09:30 Respiratory Rate 16 06/21/23 09:30 Blood Pressure 120/81 06/21/23 09:30 Pulse Oximetry 97 06/21/23 09:30 Medical Decision Making MDM Narrative Medical decision making narrative: On exam pt appears to be uncomfortable/ holding his left lower abdomen, he states that he last ate at 2100 last night, he was woken out of sleep at 2300 with sever abdominal pain along with nausea/ vomiting. Last BM was yesterday around 1900 - he has not passed flatulence today Patient reports he thinks he has colitis - since he has had this before. Concern for : Diverticulitis/ SBO/ Colitis/ Gastroenteritis/ CT is showing - adynamic ileus versus partial small bowel obstruction. Consulted with Surgeon Dr. Lemus who accepts to consult with pt being admitted under the hospitalist - He also recommends an NG to be placed. Talked with Dr. Vazquez Hospitalist who accepts pt for admission Updated pt on plan to admit here for further monitoring /care and that an NG will be placed. Patient verbalizes that he agrees to be admitted but does not want
[2023-06-21] MEDS: FAMOTIDINE 20 MG/2 ML VIAL IV PUSH ×2 (09:37→20:07)
[2023-06-21] MEDS: MORPHINE SULFATE (*CRX) 4 MG/ML INJ IV PUSH ×2 (09:39→12:52)
--- NOTE | 2023-06-21 12:15 | PC.NURSE ---
PT ADAMANTLY REFUSING NGT. LIFE COACH MADE AWARE.
--- NOTE | 2023-06-21 13:10 | ADMGEN ---
This patient, Jin Espinal, was admitted to Medical Room 256-. Patient/family oriented to hospital policies and general routines including ID bracelet, bed and alarms, visiting hours, pain management, procedures, bathroom and other care routines, personal items, smoking policy, room service/diet, and visiting hours. Information on how to activate the Rapid Response Team has been discussed. Patient/Family are encouraged to report perceived risks to care and to ask questions if they do not understand what they are told or what they should do.
--- NOTE | 2023-06-21 13:20 | PM.CNGS ---
Assessment and Plan Assessment and plan (1) SBO (small bowel obstruction): Code(s): K56.609 - Unspecified intestinal obstruction, unspecified as to partial versus complete obstruction Status: Acute Assessment and Plan: CT showed ileus versus partial small bowel obstruction. We recommended admission with NG tube decompression, IV fluids, and bowel rest. Patient refused the NG tube. We will order a water soluble small bowel follow through to further assess the possible small bowel obstruction. If contrast moves through to the colon with no evidence of an obstruction, then it is okay to start advancing the patient's diet. Plan I have discussed the patient's case and plan of care with Dr. Lemus. History of Present Illness Consult details Consult date: 06/21/23 Reason for consult: other (Small bowel obstruction) Requesting physician: Holly Ferrell APRN Narrative: This is a 53-year-old man who we have been asked to see in consultation for a small bowel obstruction. He reportedly developed abdominal pain last night around 11:00 pm. His pain woke him up from sleep. He reports the pain has been along the entire left side of his abdomen. He developed bloating, nausea, and had multiple episodes of vomiting. He came into the ER this morning for evaluation. Labs were unremarkable. CT scan of the abdomen and pelvis showed dilated small bowel with gradual transition point in the right abdomen, consistent with ileus versus partial small bowel obstruction. Our service was consulted. He is now seen in the ER. He denies pervious abdominal surgery, but with further questioning regarding a periumbilical scar he thinks it is possible he may have had an umbilical hernia repair in the past. Denies history of a bowel obstruction. He reports a history of ulcerative colitis and diverticulitis. 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 Denies diarrhea, fever, chills, or any other complaints. He is not passing flatus and his last BM was yesterday afternoon before symptoms started and was normal for him. Review of Systems Review of Systems: All systems reviewed & are unremarkable except as noted in HPI and below Constitutional: Constitutional: Reports no additional constitutional complaints, Denies chills, Denies fatigue and Denies fever(s) Eyes: Eyes: Reports no additional eye complaints ENT: Reports system reviewed and no additional complaints, except as documented and Denies dizziness Cardiovascular: Cardiovascular: Reports no additional cardiovascular complaints, Denies chest pain and Denies leg edema Respiratory: Respiratory: Reports no additional respiratory complaints and Denies cough Gastrointestinal: Gastrointestinal: Reports as per HPI, Reports no additional gastrointestinal complaints, Reports abdominal pain, Reports bloating, Denies constipation, Denies diarrhea, Reports nausea, Reports vomiting and Denies hematemesis Genitourinary: Genitourinary: Reports no additional male genitourinary complaints and Denies dysuria Musculoskeletal: Musculoskeletal: Reports no additional musculoskeletal complaints and Denies joint swelling Integumentary/Breasts: Skin/Breast: Reports system reviewed and no additional complaints, except as docu Neurologic: Reports system reviewed and no additional complaints, except as documented, Denies headache(s), Denies focal weakness, Denies numbness and Denies tingling PMFSH Past Medical History Medical History Diverticulitis Hypertension Ulcerative colitis Surgical History Surgical History History of umbilical hernia repair ?Possible umbilical hernia repair Social History Social History Smoking status: Never smoker Substance use: never Meds Home Medications and Allergies Home Medications
--- NOTE | 2023-06-21 16:46 | PM.IMHP ---
H&P: HPI History of Present Illness Date/Time: 06/21/23 16:46 Chief Complaint: Abdominal Pain, N/V Narrative: 53 y/o M presents here with abdominal pain and N/V with PMH of diverticulosis/diverticulitis, HTN, DJD, and UC. Patient presents here with LLQ abdominal pain and N/V that abruptly began around 11:15 p.m. last night. Patient reports pain woke him from sleep and he vomited 3-4 times, described it as brown (coffee-ground) and foamy. Able to go back to sleep but woke with N/V, abdominal pain almost once an hour and would vomit 2-4 times each time. Last episode of N/V produced foamy brown emesis that was blood streaked. No home medications/remedies tried. N/V continued until he sought care in the ED around 07:00 a.m. Patient initially believed current symptoms were related to his Ulcerative Colitis. LBM was yesterday - described as small and pellet like. Typical bowel habit - normal consistency/volume 2-3 times per day due to the colitis. Previously was drinking 18 pack of beer per day, recently quit (few months ago) due to its contribution to his UC. However, CT scan today shows ileus vs partial small bowel obstruction. Patient continues to complain of LLQ pain, no active N/V. Review of Systems Review of Systems: All systems reviewed & are unremarkable except as noted in HPI and below PMFSH Past Medical History Medical History (Updated 06/21/23 @ 17:46 by Yakelin Calvillo APRN) Diverticulitis DJD (degenerative joint disease) Hypertension KIANNA (obstructive sleep apnea) Ulcerative colitis Surgical History Surgical History History of foot surgery bilateral, correction of congenital foot abnormality History of umbilical hernia repair ?Possible umbilical hernia repair Social History Social History (Updated 06/21/23 @ 17:22 by Yakelin Calvillo APRN) Social History: Currently lives alone. Surrogate decisionmaker: Silva (friend) [phone] Code Status: Full Code. Smoking status: Never smoker Alcohol intake: former Alcohol use details: 18 pack of beer daily, cessation a few months ago as of 06/21/23. Substance use: never Lack of Transportation: No Lack of Food: Never True Current Housing: I Have Housing Concerned About Future Housing: No Difficulty Paying Gas/Electric Bills: No Difficulty Paying for Meds: No Currently Unemployed: No Education: Decline to Answer Difficulty w/ Childcare or Family Care: No Spiritual care concerns: No Meds Home Medications and Allergies Home Medications Medication Instructions Recorded Confirmed Type ibuprofen 600 mg tablet 600 mg PO TID PRN pain #10 tabs 10/22/22 06/21/23 Rx amlodipine 10 mg tablet 10 mg PO DAILY 06/21/23 06/21/23 History losartan 25 mg tablet 25 mg PO DAILY 06/21/23 06/21/23 History mesalamine 1.2 gram tablet,delayed 2.4 g PO DAILY 06/21/23 06/21/23 History release tramadol 50 mg tablet 100 mg PO BID PRN Pain 06/21/23 06/21/23 History Allergies Allergy/AdvReac Type Severity Reaction Status Date / Time No Known Allergies Allergy Verified 10/22/22 08:01 Vital Signs Vital Signs - 24 hr 06/21/23 07:51 06/21/23 09:30 06/21/23 12:53 Temperature 97.4 F L Pulse Rate 83 66 70 Respiratory Rate 18 16 16 Blood Pressure 148/83 H 120/81 121/74 Pulse Oximetry 98 97 99 Oxygen Delivery 06/21/23 13:40 Temperature Pulse Rate Respiratory Rate Blood Pressure Pulse Oximetry Oxygen Delivery Room Air Exam Narrative: Resting in hospital bed, no visitors at bedside. Const: General: comfortable and no acute distress HENMT: Face/Nose/Sinus: Normal nares present Mouth: Yes moist mucous membranes Eyes: General: appearance normal, both eyes and all related structures Sclera: sclerae normal Pupils: Equal, round and reactive pupils present EOM: EOMs intact bilaterally Resp: Effort & Inspection: normal respiratory effort Auscultati
[2023-06-21] MEDS: LACTATED RINGERS 1,000 ML 100 ML IV CONT (18:01)
[2023-06-21] MEDS: MORPHINE SULFATE (*CRX) 2 MG/ML INJ IV PUSH (20:12)
[2023-06-22] VITALS (7 sets, daily range): BP systolic 104–133; BP diastolic 62–87; PULSE 61–67; RESP 16–21; TEMP 36.2–36.6; O2SAT 97–100
--- NOTE | 2023-06-22 08:16 | PM.IMPN ---
Progress Note: A&P Assessment and Plan (1) SBO (small bowel obstruction): Code(s): K56.609 - Unspecified intestinal obstruction, unspecified as to partial versus complete obstruction Status: Acute Assessment and Plan: CT abd/pelvis w/con: Dilated small bowel with gradual transition point in right abdomen, consistent with adynamic ileus versus partial small bowel obstruction. Chronic 5 mm density in the descending colon with chronic fat stranding around this area, consistent with inflammation versus scarring. consult GenSurg - Allan, recommended NG tube placement - patient currently refusing, will reconsider if obstruction is persistent and if surgery is a possibility. SBFT pending (2) Nausea & vomiting: Qualifiers: Vomiting type: unspecified Qualified Code(s): R11.2 - Nausea with vomiting, unspecified Code(s): R11.2 - Nausea with vomiting, unspecified Status: Acute Assessment and Plan: zofran Q4H, likely secondary to possible SBO, refused NG Modified bowel rest and NPO until further w/u, famotidine IV, check FOBT Plan Home Meds/Chronic Conditions - hold home PO medications for HTN/pain management, resume if diet advanced. Hydralazine PRN for hypertension. - home CPAP for KIANNA Diet: NPO GI Prophylaxis: Famotidine IVP Q12 DVT Prophylaxis: SCDs Code Status: Full Code Subjective Date/time seen: 06/22/23 08:16 Interval history: 53-year-old male with history of diverticulosis, hypertension and ulcerative colitis is presenting with abdominal pain, nausea and vomiting and currently being treated for SBO. No overnight events noted. No chest pain or shortness of breath. No nausea, vomiting. No fevers or chills. Some diarrhea. Feels much better, eager to go home. Review of Systems Review of Systems: 12 point review of systems was assessed and was negative except as noted in the HPI Exam Narrative: General: No acute distress, alert and oriented per baseline HEENT: Atraumatic, normocephalic, mucous membranes moist CV: Regular rate and rhythm, S1, S2 Lungs: Clear to auscultation bilaterally, no rales or crackles noted, no wheezes, good air entry Abdomen: Soft, nontender, nondistended Extremities: Normal to inspection Skin: No rashes noted, no lesions or wounds seen Psych: Euthymic, normal affect Objective Data Vital Signs Vital Signs: Vital Signs - 24 hr 06/21/23 09:30 06/21/23 12:53 06/21/23 13:40 Temperature Pulse Rate 66 70 Respiratory Rate 16 16 Blood Pressure 120/81 121/74 Pulse Oximetry 97 99 Oxygen Delivery Room Air 06/21/23 20:13 06/21/23 20:33 06/21/23 20:34 Temperature 97.9 F Pulse Rate 72 Respiratory Rate 20 18 Blood Pressure 118/72 Pulse Oximetry 92 98 98 Oxygen Delivery Autopap Room Air 06/21/23 20:00 06/22/23 01:02 06/22/23 03:56 Temperature 97.9 F Pulse Rate 72 61 Respiratory Rate 18 21 H 20 Blood Pressure 104/62 Pulse Oximetry 98 97 100 Oxygen Delivery Room Air Autopap Intake/Output Intake/Output: Intake & Output 06/19/23 06/20/23 06/21/23 06/22/23 23:59 23:59 23:59 23:59 Intake Total 1000 1000 Output Total 300 Balance 1000 700 Meds/Results Medications: Active Medications Generic Name Dose Route Start Last Admin Trade Name Freq PRN Reason Stop Dose Admin Acetaminophen 650 mg 06/21/23 19:53 Acetaminophen 650 Mg Suppository RECTAL Q4H PRN Mild Pain (1-3) or Fever Famotidine 20 mg 06/21/23 21:00 06/21/23 20:07 Famotidine 20 Mg/2 Ml Vial IV PUSH 20 mg Q12HR BILL Administration Morphine Sulfate 2 mg 06/21/23 17:38 06/21/23 20:12 Morphine Sulfate (*Crx) 2 Mg/Ml Inj IV PUSH 2 mg Q4H PRN Administration Pain Rated 4-6 Morphine Sulfate 4 mg 06/21/23 17:38 Morphine Sulfate (*Crx) 4 Mg/Ml Inj IV PUSH Q4H PRN Pain Rated 7-10 Ondansetron HCl 4 mg 06/21/23 17:38 Ondansetron Inj 4 Mg/2 Ml Vial IV
[2023-06-22 08:55] LABS: Basophils Percent Auto 0.2 % (0.2-1.2); Eosinophils Absolute Auto 0.1 K/mm3 (0-0.3); Eosinophils Percent Auto 1.3 % (0-4.4); Hematocrit 38.4 % (42.0-52.0); Hemoglobin 12.3 g/dL (14.0-18.0); Immature Granulocyte Absolute 0.01 K/mm3 (0.00-0.031); Immature Granulocyte Percent A 0.2 % (0-0.5); Lymphocytes Absolute Auto 2.42 K/mm3 (0.9-3.2); Lymphocytes Percent Auto 45.1 % (18.3-44.2); Mean Corpuscular Hemoglobin 30.8 pg (26-34); Mean Corpuscular Volume 96.2 fl (80-100); Mean Platelet Volume 11.7 fl (7.4-10.4); Monocytes Absolute Auto 0.5 K/mm3 (0.1-0.6); Monocytes Percent Auto 9.7 % (2.6-8.5); Neutrophils Absolute Auto 2.3 K/mm3 (1.3-6.7); Neutrophils Percent Auto 43.5 % (45.5-73.1); Platelet Count Result 192 k/mm3 (150-375); Red Blood Count 3.99 M/mm3 (4.6-6.20); Red Cell Distribution Width 13.7 % (11.5-14.5); White Blood Count 5.4 K/mm3 (4.5-10.0)
[2023-06-22 08:57] LABS: Alanine Aminotransferase 21 U/L (6-50); Alkaline Phosphatase 69 U/L (38-126); Anion Gap 11 mmol/L (8-16); Aspartate Amino Transferase 27 U/L (17-59); Bilirubin,Total 0.9 mg/dL (0.2-1.3); Blood Urea Nitrogen 13 mg/dL (9-20); Calcium 8.7 mg/dL (8.4-10.2); Carbon Dioxide 25 mmol/L (22-30); Chloride 106 mmol/L (98-107); Estimated CRCL calculation 128 ml/min; Estimated Glomerular Filt Rate > 60; Glucose 101 mg/dL (65-110); Potassium 3.5 mmol/L (3.4-5.0); Sodium 142 mmol/L (137-145)
[2023-06-22] MEDS: FAMOTIDINE 20 MG/2 ML VIAL IV PUSH ×2 (09:17→20:14)
[2023-06-22 09:30] LABS: Atypical Lymphocytes Present; Burr Cells 1+ (NORMAL); Platelet Estimate Adequate (Adequate); Schistocytes None Seen (NORMAL)
--- NOTE | 2023-06-22 10:20 | PM.PNGS ---
Progress Note: A&P Assessment and Plan (1) SBO (small bowel obstruction): Code(s): K56.609 - Unspecified intestinal obstruction, unspecified as to partial versus complete obstruction Status: Acute Assessment and Plan: SBFT showed some dilated bowel with delayed transit to the colon in 4 hours. Clinically he is improving and his bowels are moving. Will start him on a clear liquid diet this morning. Encouraged him to walk the halls. Will repeat abdominal x-ray tomorrow morning. Plan I have discussed the patient's case and plan of care with Dr. Lemus. Subjective Subjective Date/Time Seen: 06/22/23 10:20 Patient reports: no new complaints, feels better, pain is less, flatus and bowel movement Interval history: Patient seen this morning and had his small-bowel follow-through yesterday. He has had multiple bowel movements through the night and this morning since the contrast study. Reports his abdominal pain is much improved this morning. He has not required any morphine since last night around 8:00 p.m.. He had a dose of Tylenol this morning for a headache. He reports feeling nauseous during the contrast study yesterday, but this has resolved since moving his bowels. No vomiting. Exam Const: General: comfortable, no acute distress and obese GI: Inspection: Pannus present, obesity and other (large protuberant abdomen still slightly distended) GI Palp: Yes Soft to palpation, Yes Tenderness to palpation present (GI) (much less tender, only mild tenderness in the RUQ), No Guarding due to palpation present (GI) and No Rebound tenderness present Auscultation: normal bowel sounds Objective Data Vital Signs Vital Signs: Vital Signs - 24 hr 06/21/23 12:53 06/21/23 13:40 06/21/23 20:13 Temperature 97.9 F Pulse Rate 70 72 Respiratory Rate 16 20 Blood Pressure 121/74 118/72 Pulse Oximetry 99 92 Oxygen Delivery Room Air 06/21/23 20:33 06/21/23 20:34 06/21/23 20:00 Temperature Pulse Rate 72 Respiratory Rate 18 18 Blood Pressure Pulse Oximetry 98 98 98 Oxygen Delivery Autopap Room Air Room Air 06/22/23 01:02 06/22/23 03:56 Temperature 97.9 F Pulse Rate 61 Respiratory Rate 21 H 20 Blood Pressure 104/62 Pulse Oximetry 97 100 Oxygen Delivery Autopap Intake/Output Intake/Output: Intake & Output 06/19/23 06/20/23 06/21/23 06/22/23 23:59 23:59 23:59 23:59 Intake Total 1000 1000 Output Total 300 Balance 1000 700 Meds/Results Medications: Active Medications Generic Name Dose Route Start Last Admin Trade Name Freq PRN Reason Stop Dose Admin Acetaminophen 650 mg 06/21/23 19:53 Acetaminophen 650 Mg Suppository RECTAL Q4H PRN Mild Pain (1-3) or Fever Famotidine 20 mg 06/21/23 21:00 06/22/23 09:17 Famotidine 20 Mg/2 Ml Vial IV PUSH 20 mg Q12HR BILL Administration Morphine Sulfate 2 mg 06/21/23 17:38 06/21/23 20:12 Morphine Sulfate (*Crx) 2 Mg/Ml Inj IV PUSH 2 mg Q4H PRN Administration Pain Rated 4-6 Morphine Sulfate 4 mg 06/21/23 17:38 Morphine Sulfate (*Crx) 4 Mg/Ml Inj IV PUSH Q4H PRN Pain Rated 7-10 Ondansetron HCl 4 mg 06/21/23 17:38 Ondansetron Inj 4 Mg/2 Ml Vial IV PUSH Q4H PRN Nausea And Vomiting Radiology Results: ITS Impressions Abdomen/Pelvis CT 06/21/23 10:02 IMPRESSION: 1. Dilated small bowel with gradual transition point in right abdomen, consistent with adynamic ileus versus partial small bowel obstruction. 2. Chronic 5 mm density in the descending colon with chronic fat stranding around this area, consistent with inflammation versus scarring. Small Bowel X-Ray 06/22/23 08:37 IMPRESSION: 1. Dilated small bowel with delayed transit of contrast to the colon, consistent with adynamic ileus versus partial small bowel obstruction. Labs Labs: Laboratory Results - last 24 hr 06/22/23 08:41 WBC 5.4 RBC 3.99 L Hgb 12.3 L Hct 3
[2023-06-22] MEDS: ACETAMINOPHEN 325 MG TABLET 650 MG PO (20:54)
[2023-06-23 02:36] VITALS: PULSE 61; RESP 19; O2SAT 98
[2023-06-23 03:53] VITALS: BP 107/75; PULSE 60; RESP 20; TEMP 36.3; O2SAT 100
[2023-06-23 06:05] LABS: Basophils Percent Auto 0.4 % (0.2-1.2); Eosinophils Absolute Auto 0.1 K/mm3 (0-0.3); Eosinophils Percent Auto 1.5 % (0-4.4); Hematocrit 38.4 % (42.0-52.0); Hemoglobin 12.1 g/dL (14.0-18.0); Immature Granulocyte Absolute 0.01 K/mm3 (0.00-0.031); Immature Granulocyte Percent A 0.2 % (0-0.5); Lymphocytes Absolute Auto 2.48 K/mm3 (0.9-3.2); Lymphocytes Percent Auto 45.8 % (18.3-44.2); Mean Corpuscular HGB Conc 31.5 g/dl (32-36); Mean Corpuscular Hemoglobin 30.4 pg (26-34); Mean Corpuscular Volume 96.5 fl (80-100); Mean Platelet Volume 11.9 fl (7.4-10.4); Monocytes Absolute Auto 0.6 K/mm3 (0.1-0.6); Monocytes Percent Auto 11.6 % (2.6-8.5); Neutrophils Absolute Auto 2.2 K/mm3 (1.3-6.7); Neutrophils Percent Auto 40.5 % (45.5-73.1); Platelet Count Result 186 k/mm3 (150-375); Red Blood Count 3.98 M/mm3 (4.6-6.20); Red Cell Distribution Width 13.4 % (11.5-14.5); White Blood Count 5.4 K/mm3 (4.5-10.0)
[2023-06-23 06:20] LABS: Alanine Aminotransferase 19 U/L (6-50); Albumin Level 3.8 g/dL (3.5-5.1); Alkaline Phosphatase 71 U/L (38-126); Anion Gap 8 mmol/L (8-16); Aspartate Amino Transferase 25 U/L (17-59); Bilirubin,Total 0.6 mg/dL (0.2-1.3); Blood Urea Nitrogen 13 mg/dL (9-20); Calcium 8.6 mg/dL (8.4-10.2); Carbon Dioxide 28 mmol/L (22-30); Chloride 105 mmol/L (98-107); Estimated CRCL calculation 128 ml/min; Estimated Glomerular Filt Rate > 60; Glucose 107 mg/dL (65-110); Potassium 3.4 mmol/L (3.4-5.0); Sodium 141 mmol/L (137-145)
[2023-06-23] MEDS: FAMOTIDINE 20 MG/2 ML VIAL IV PUSH ×2 (08:09→20:11)
[2023-06-23] MEDS: ACETAMINOPHEN 325 MG TABLET 650 MG PO (08:09)
--- NOTE | 2023-06-23 10:41 | PM.PNGS ---
Progress Note: A&P Assessment and Plan (1) SBO (small bowel obstruction): Code(s): K56.609 - Unspecified intestinal obstruction, unspecified as to partial versus complete obstruction Status: Acute Assessment and Plan: Abd X-ray this AM still shows some dilated loops of bowel. Will continue to slowly advance diet. Full liquids for lunch. Might consider soft diet for dinner but will have to see how he tolerates full liquids first. Subjective Subjective Date/Time Seen: 06/23/23 10:41 Interval history: Tolerating liquids. Bowels moving. Still occasional bloating. No nausea or vomiting. Exam GI: Inspection: obesity GI Palp: Yes Soft to palpation, No Tenderness to palpation present (GI) and No Guarding due to palpation present (GI) Percussion: Yes dullness to percussion Objective Data Vital Signs Vital Signs: Vital Signs - 24 hr 06/22/23 14:00 06/22/23 20:47 06/22/23 20:45 Temperature 36.6 C 36.2 C L 36.2 C L Pulse Rate 65 66 66 Respiratory Rate 16 20 20 Blood Pressure 133/87 117/73 117/73 Pulse Oximetry 100 98 98 Oxygen Delivery 06/22/23 20:00 06/23/23 03:53 06/22/23 21:55 Temperature 36.3 C L Pulse Rate 66 60 67 Respiratory Rate 20 20 20 Blood Pressure 107/75 Pulse Oximetry 98 100 97 Oxygen Delivery Room Air Autopap 06/23/23 02:36 06/23/23 08:00 Temperature Pulse Rate 61 Respiratory Rate 19 Blood Pressure Pulse Oximetry 98 Oxygen Delivery Autopap Room Air Intake/Output Intake/Output: Intake & Output 06/20/23 06/21/23 06/22/23 06/23/23 23:59 23:59 23:59 23:59 Intake Total 1000 1930 690 Output Total 1300 Balance 1000 630 690 Meds/Results Medications: Active Medications Generic Name Dose Route Start Last Admin Trade Name Freq PRN Reason Stop Dose Admin Acetaminophen 650 mg 06/22/23 20:19 06/23/23 08:09 Acetaminophen 325 Mg Tablet PO 650 mg Q4H PRN Administration Mild Pain (1-3) or Fever Famotidine 20 mg 06/21/23 21:00 06/23/23 08:09 Famotidine 20 Mg/2 Ml Vial IV PUSH 20 mg Q12HR BILL Administration Morphine Sulfate 2 mg 06/21/23 17:38 06/21/23 20:12 Morphine Sulfate (*Crx) 2 Mg/Ml Inj IV PUSH 2 mg Q4H PRN Administration Pain Rated 4-6 Morphine Sulfate 4 mg 06/21/23 17:38 Morphine Sulfate (*Crx) 4 Mg/Ml Inj IV PUSH Q4H PRN Pain Rated 7-10 Ondansetron HCl 4 mg 06/21/23 17:38 Ondansetron Inj 4 Mg/2 Ml Vial IV PUSH Q4H PRN Nausea And Vomiting Radiology Results: ITS Impressions Abdomen/Pelvis CT 06/21/23 10:02 IMPRESSION: 1. Dilated small bowel with gradual transition point in right abdomen, consistent with adynamic ileus versus partial small bowel obstruction. 2. Chronic 5 mm density in the descending colon with chronic fat stranding around this area, consistent with inflammation versus scarring. Small Bowel X-Ray 06/22/23 08:37 IMPRESSION: 1. Dilated small bowel with delayed transit of contrast to the colon, consistent with adynamic ileus versus partial small bowel obstruction. Abdomen X-Ray 06/23/23 09:56 IMPRESSION: 1. Dilated small bowel with improvement from 06/21/2023, consistent with adynamic ileus versus partial small bowel obstruction. Labs Labs: Laboratory Results - last 24 hr 06/23/23 05:33 WBC 5.4 RBC 3.98 L Hgb 12.1 L Hct 38.4 L MCV 96.5 MCH 30.4 MCHC 31.5 L RDW 13.4 Plt Count 186 MPV 11.9 H Immature Gran % (Auto) 0.2 Neut % (Auto) 40.5 L Lymph % (Auto) 45.8 H [place] % (Auto) 11.6 H Eos % (Auto) 1.5 Baso % (Auto) 0.4 Lymph # (Auto) 2.48 [place] # (Auto) 0.6 Eos # (Auto) 0.1 Baso # (Auto) 0.0 Abs Immat Gran (auto) 0.01 Absolute Neuts (auto) 2.2 Absolute Nucleated RBC 0.0 Nucleated RBC % 0.0 Sodium 141 Potassium 3.4 Chloride 105 Carbon Dioxide 28 Anion Gap 8 BUN 13 Creatinine 0.90 Estim Creat Clear Calc 128 Estimated GFR > 60 Glucose 107 Calcium 8.6 Total Bilirub
--- NOTE | 2023-06-23 13:23 | PM.IMPN ---
Progress Note: A&P Assessment and Plan (1) SBO (small bowel obstruction): Code(s): K56.609 - Unspecified intestinal obstruction, unspecified as to partial versus complete obstruction Status: Acute Assessment and Plan: CT abd/pelvis w/con: Dilated small bowel with gradual transition point in right abdomen, consistent with adynamic ileus versus partial small bowel obstruction. Chronic 5 mm density in the descending colon with chronic fat stranding around this area, consistent with inflammation versus scarring. consult GenSurg - Allan, recommended NG tube placement - patient currently refusing, will reconsider if obstruction is persistent and if surgery is a possibility. Abdominal x-ray shows continued adynamic ileus, monitor symptoms with p.o. intake (2) Nausea & vomiting: Qualifiers: Vomiting type: unspecified Qualified Code(s): R11.2 - Nausea with vomiting, unspecified Code(s): R11.2 - Nausea with vomiting, unspecified Status: Acute Assessment and Plan: zofran Q4H, likely secondary to possible SBO, refused NG Modified bowel rest and NPO until further w/u, famotidine IV, check FOBT Plan Home Meds/Chronic Conditions - hold home PO medications for HTN/pain management, resume if diet advanced. Hydralazine PRN for hypertension. - home CPAP for KIANNA Diet: NPO GI Prophylaxis: Famotidine IVP Q12 DVT Prophylaxis: SCDs Code Status: Full Code Subjective Date/time seen: 06/23/23 13:23 Interval history: 53-year-old male with history of diverticulosis, hypertension and ulcerative colitis is presenting with abdominal pain, nausea and vomiting and currently being treated for SBO. No overnight events noted. No chest pain or shortness of breath. No nausea, vomiting. No fevers or chills. Some diarrhea. Feels much better, eager to go home, admits to worsening abdominal pain with p.o. intake. Review of Systems Review of Systems: 12 point review of systems was assessed and was negative except as noted in the HPI Exam Narrative: General: No acute distress, alert and oriented per baseline HEENT: Atraumatic, normocephalic, mucous membranes moist CV: Regular rate and rhythm, S1, S2 Lungs: Clear to auscultation bilaterally, no rales or crackles noted, no wheezes, good air entry Abdomen: Somewhat tender to palpation, no rebounding or guarding Extremities: Normal to inspection Skin: No rashes noted, no lesions or wounds seen Psych: Euthymic, normal affect Objective Data Vital Signs Vital Signs: Vital Signs - 24 hr 06/22/23 14:00 06/22/23 20:47 06/22/23 20:45 Temperature 97.9 F 97.2 F L 97.2 F L Pulse Rate 65 66 66 Respiratory Rate 16 20 20 Blood Pressure 133/87 117/73 117/73 Pulse Oximetry 100 98 98 Oxygen Delivery 06/22/23 20:00 06/23/23 03:53 06/22/23 21:55 Temperature 97.4 F L Pulse Rate 66 60 67 Respiratory Rate 20 20 20 Blood Pressure 107/75 Pulse Oximetry 98 100 97 Oxygen Delivery Room Air Autopap 06/23/23 02:36 06/23/23 08:00 Temperature Pulse Rate 61 Respiratory Rate 19 Blood Pressure Pulse Oximetry 98 Oxygen Delivery Autopap Room Air Intake/Output Intake/Output: Intake & Output 06/20/23 06/21/23 06/22/23 06/23/23 23:59 23:59 23:59 23:59 Intake Total 1000 1930 690 Output Total 1300 Balance 1000 630 690 Meds/Results Medications: Active Medications Generic Name Dose Route Start Last Admin Trade Name Freq PRN Reason Stop Dose Admin Acetaminophen 650 mg 06/22/23 20:19 06/23/23 08:09 Acetaminophen 325 Mg Tablet PO 650 mg Q4H PRN Administration Mild Pain (1-3) or Fever Famotidine 20 mg 06/21/23 21:00 06/23/23 08:09 Famotidine 20 Mg/2 Ml Vial IV PUSH 20 mg Q12HR BILL Administration Morphine Sulfate 2 mg 06/21/23 17:38 06/21/23 20:12 Morphine Sulfate (*Crx) 2 Mg/Ml Inj IV PUSH 2 mg Q4H PRN Administration Pain Rated 4-6 Morphine Sulfate 4 mg 1
[2023-06-23 14:00] VITALS: BP 130/80; PULSE 68; RESP 16; TEMP 36.6; O2SAT 99
[2023-06-23 20:27] VITALS: BP 126/77; PULSE 64; RESP 20; TEMP 36.1; O2SAT 100
[2023-06-23 22:15] VITALS: PULSE 64; RESP 20; O2SAT 99
[2023-06-24 05:06] VITALS: BP 130/85; PULSE 63; RESP 20; TEMP 35.9; O2SAT 100
[2023-06-24] MEDS: ACETAMINOPHEN 325 MG TABLET 650 MG PO (05:10)
[2023-06-24 06:14] LABS: Basophils Percent Auto 0.4 % (0.2-1.2); Eosinophils Absolute Auto 0.1 K/mm3 (0-0.3); Eosinophils Percent Auto 1.1 % (0-4.4); Hemoglobin 12.2 g/dL (14.0-18.0); Immature Granulocyte Absolute 0.01 K/mm3 (0.00-0.031); Immature Granulocyte Percent A 0.2 % (0-0.5); Lymphocytes Absolute Auto 2.89 K/mm3 (0.9-3.2); Mean Corpuscular HGB Conc 32.1 g/dl (32-36); Mean Corpuscular Hemoglobin 30.7 pg (26-34); Mean Corpuscular Volume 95.5 fl (80-100); Mean Platelet Volume 11.6 fl (7.4-10.4); Monocytes Absolute Auto 0.6 K/mm3 (0.1-0.6); Monocytes Percent Auto 10.1 % (2.6-8.5); Neutrophils Percent Auto 36.2 % (45.5-73.1); Platelet Count Result 191 k/mm3 (150-375); Red Blood Count 3.98 M/mm3 (4.6-6.20); Red Cell Distribution Width 13.3 % (11.5-14.5); White Blood Count 5.6 K/mm3 (4.5-10.0)
[2023-06-24 06:24] LABS: Potassium 3.5 mmol/L (3.4-5.0)
[2023-06-24 06:25] LABS: Alanine Aminotransferase 19 U/L (6-50); Albumin Level 3.9 g/dL (3.5-5.1); Alkaline Phosphatase 70 U/L (38-126); Anion Gap 8 mmol/L (8-16); Aspartate Amino Transferase 24 U/L (17-59); Bilirubin,Total 0.6 mg/dL (0.2-1.3); Blood Urea Nitrogen 11 mg/dL (9-20); Calcium 8.6 mg/dL (8.4-10.2); Carbon Dioxide 26 mmol/L (22-30); Chloride 106 mmol/L (98-107); Estimated CRCL calculation 143 ml/min; Estimated Glomerular Filt Rate > 60; Glucose 109 mg/dL (65-110); Sodium 140 mmol/L (137-145)
--- NOTE | 2023-06-24 08:31 | PM.PNGS ---
Progress Note: A&P Assessment and Plan (1) SBO (small bowel obstruction): Code(s): K56.609 - Unspecified intestinal obstruction, unspecified as to partial versus complete obstruction Status: Resolved Assessment and Plan: Tolerating diet. OK to discharge home today. No surgical follow up needed. Return to ED for recurrent symptoms. Subjective Subjective Date/Time Seen: 06/24/23 08:31 Interval history: Feeling better. Tolerating diet. Bowels moving. No nausea or vomiting. Exam GI: Inspection: obesity GI Palp: Yes Soft to palpation, No Tenderness to palpation present (GI) and No Guarding due to palpation present (GI) Percussion: Yes dullness to percussion Objective Data Vital Signs Vital Signs: Vital Signs - 24 hr 06/23/23 14:00 06/23/23 20:27 06/23/23 22:15 Temperature 36.6 C 36.1 C L Pulse Rate 68 64 64 Respiratory Rate 16 20 20 Blood Pressure 130/80 126/77 Pulse Oximetry 99 100 99 Oxygen Delivery Autopap 06/24/23 05:06 Temperature 35.9 C L Pulse Rate 63 Respiratory Rate 20 Blood Pressure 130/85 Pulse Oximetry 100 Oxygen Delivery Intake/Output Intake/Output: Intake & Output 06/21/23 06/22/23 06/23/23 06/24/23 23:59 23:59 23:59 23:59 Intake Total 1000 1930 2220 490 Output Total 1300 1500 350 Balance 1000 630 720 140 Meds/Results Medications: Active Medications Generic Name Dose Route Start Last Admin Trade Name Freq PRN Reason Stop Dose Admin Acetaminophen 650 mg 06/22/23 20:19 06/24/23 05:10 Acetaminophen 325 Mg Tablet PO 650 mg Q4H PRN Administration Mild Pain (1-3) or Fever Famotidine 20 mg 06/21/23 21:00 06/23/23 20:11 Famotidine 20 Mg/2 Ml Vial IV PUSH 20 mg Q12HR BILL Administration Morphine Sulfate 2 mg 06/21/23 17:38 06/21/23 20:12 Morphine Sulfate (*Crx) 2 Mg/Ml Inj IV PUSH 2 mg Q4H PRN Administration Pain Rated 4-6 Morphine Sulfate 4 mg 06/21/23 17:38 Morphine Sulfate (*Crx) 4 Mg/Ml Inj IV PUSH Q4H PRN Pain Rated 7-10 Ondansetron HCl 4 mg 06/21/23 17:38 Ondansetron Inj 4 Mg/2 Ml Vial IV PUSH Q4H PRN Nausea And Vomiting Radiology Results: ITS Impressions Abdomen/Pelvis CT 06/21/23 10:02 IMPRESSION: 1. Dilated small bowel with gradual transition point in right abdomen, consistent with adynamic ileus versus partial small bowel obstruction. 2. Chronic 5 mm density in the descending colon with chronic fat stranding around this area, consistent with inflammation versus scarring. Small Bowel X-Ray 06/22/23 08:37 IMPRESSION: 1. Dilated small bowel with delayed transit of contrast to the colon, consistent with adynamic ileus versus partial small bowel obstruction. Abdomen X-Ray 06/23/23 09:56 IMPRESSION: 1. Dilated small bowel with improvement from 06/21/2023, consistent with adynamic ileus versus partial small bowel obstruction. Labs Labs: Laboratory Results - last 24 hr 06/24/23 05:48 WBC 5.6 RBC 3.98 L Hgb 12.2 L Hct 38.0 L MCV 95.5 MCH 30.7 MCHC 32.1 RDW 13.3 Plt Count 191 MPV 11.6 H Immature Gran % (Auto) 0.2 Neut % (Auto) 36.2 L Lymph % (Auto) 52.0 H [place] % (Auto) 10.1 H Eos % (Auto) 1.1 Baso % (Auto) 0.4 Lymph # (Auto) 2.89 [place] # (Auto) 0.6 Eos # (Auto) 0.1 Baso # (Auto) 0.0 Abs Immat Gran (auto) 0.01 Absolute Neuts (auto) 2.0 Absolute Nucleated RBC 0.0 Nucleated RBC % 0.0 Sodium 140 Potassium 3.5 Chloride 106 Carbon Dioxide 26 Anion Gap 8 BUN 11 Creatinine 0.80 Estim Creat Clear Calc 143 Estimated GFR > 60 Glucose 109 Calcium 8.6 Total Bilirubin 0.6 AST 24 ALT 19 Alkaline Phosphatase 70 Total Protein 8.0 Albumin 3.9
[2023-06-24] MEDS: FAMOTIDINE 20 MG/2 ML VIAL IV PUSH (08:57)
--- NOTE | 2023-06-24 11:56 | PM.DS ---
DS: Admitting Diagnosis Discharge Date 06/24/23 Admitting Diagnosis abdominal pain DS: Discharge Diagnosis Discharge Diagnosis (1) SBO (small bowel obstruction): Code(s): K56.609 - Unspecified intestinal obstruction, unspecified as to partial versus complete obstruction Status: Resolved Assessment and Plan: CT abd/pelvis w/con: Dilated small bowel with gradual transition point in right abdomen, consistent with adynamic ileus versus partial small bowel obstruction. Chronic 5 mm density in the descending colon with chronic fat stranding around this area, consistent with inflammation versus scarring. consult GenSurg - Allan, recommended NG tube placement - patient currently refusing, will reconsider if obstruction is persistent and if surgery is a possibility. Abdominal x-ray shows continued adynamic ileus, monitor symptoms with p.o. intake (2) Nausea & vomiting: Qualifiers: Vomiting type: unspecified Qualified Code(s): R11.2 - Nausea with vomiting, unspecified Code(s): R11.2 - Nausea with vomiting, unspecified Status: Acute Assessment and Plan: zofran Q4H, likely secondary to possible SBO, refused NG Modified bowel rest and NPO until further w/u, famotidine IV, check FOBT Plan Home Meds/Chronic Conditions - hold home PO medications for HTN/pain management, resume if diet advanced. Hydralazine PRN for hypertension. - home CPAP for KIANNA Diet: NPO GI Prophylaxis: Famotidine IVP Q12 DVT Prophylaxis: SCDs Code Status: Full Code DS: Summary Hospital Course Hospital Course: 53-year-old male with history of diverticulosis, hypertension and ulcerative colitis is presenting with abdominal pain, nausea and vomiting and currently being treated for SBO. CT abd/pelvis w/con: Dilated small bowel with gradual transition point in right abdomen, consistent with adynamic ileus versus partial small bowel obstruction. Chronic 5 mm density in the descending colon with chronic fat stranding around this area, consistent with inflammation versus scarring. consult GenSurg - Allan, recommended NG tube placement - patient currently refusing, will reconsider if obstruction is persistent and if surgery is a possibility. Abdominal x-ray shows continued adynamic ileus, monitor symptoms with p.o. intake All symptoms resolved, patient tolerated p.o. intake well. Surgery recommended discharge. Please see above and med rec for details. Patient was discharged in stable condition with close outpatient follow-up. Time Spent with Patient Time attestation: Total time spent providing and/or coordinating discharge services: Exam Narrative: General: No acute distress, alert and oriented per baseline HEENT: Atraumatic, normocephalic, mucous membranes moist CV: Regular rate and rhythm, S1, S2 Lungs: Clear to auscultation bilaterally, no rales or crackles noted, no wheezes, good air entry Abdomen: Somewhat tender to palpation, no rebounding or guarding Extremities: Normal to inspection Skin: No rashes noted, no lesions or wounds seen Psych: Euthymic, normal affect DS: Data Data Completed and Pending Labs on day of discharge: Labs from last 24 hours 06/24/23 05:48 WBC 5.6 RBC 3.98 L Hgb 12.2 L Hct 38.0 L MCV 95.5 MCH 30.7 MCHC 32.1 RDW 13.3 Plt Count 191 MPV 11.6 H Immature Gran % (Auto) 0.2 Neut % (Auto) 36.2 L Lymph % (Auto) 52.0 H [place] % (Auto) 10.1 H Eos % (Auto) 1.1 Baso % (Auto) 0.4 Lymph # (Auto) 2.89 [place] # (Auto) 0.6 Eos # (Auto) 0.1 Baso # (Auto) 0.0 Abs Immat Gran (auto) 0.01 Absolute Neuts (auto) 2.0 Absolute Nucleated RBC 0.0 Nucleated RBC % 0.0 Sodium 140 Potassium 3.5 Chloride 106 Carbon Dioxide 26 Anion Gap 8 BUN 11 Creatinine 0.80 Estim Creat Clear Calc 143 Estimated GFR > 60 Glucose 109 Calcium 8.6 Total Bilirubin 0.6 AST 24 ALT 19 Alkaline Phosphatase 70 Total Protein 8.0 Albumin 3.9
--- NOTE | 2023-06-24 12:59 | PC.NURSE ---
On 06/24/23, the student, [Mayela Perkins], provided care and completed [facility] documentation on this patient. I have reviewed the student's documentation and agree with the findings.
== END 2023-06-24 12:34 | disposition home or self-care (01) | DRG 390 ==
LOC: ANHED 12:55 → ANH2MED 13:05
PROVIDERS: Student in an Organized Health Care Education/Training Program; Admitting Provider Internal Medicine; Emergency Provider Nurse Practitioner Family; PCP Internal Medicine Gastroenterology; Visit Provider Student in an Organized Health Care Education/Training Program
DX: K56.609 Unspecified intestinal obstruction, unspecified as to partial versus complete obstruction (principal); K57.30 Diverticulosis of large intestine without perforation or abscess without bleeding; I10 Essential (primary) hypertension; G47.33 Obstructive sleep apnea (adult) (pediatric)
CPT/HCPCS: 36415; 74019; 74177; 74250; 80053; 81001; 83690; 85025; 96361; 96374; 96375; 99285; A9270; J2270; J2405; J7030; J7120; Q9967

== ENCOUNTER 2025-05-13 09:12 | Outpatient (CLI) | payer MEDICARE, MEDICAID, SELFPAY ==
--- NOTE | ~2025-05-13 | XR_ITS ---
XR lumbar spine 2-3V Indication: SPINAL STENOSIS OF LUMBAR; CHRONIC LT SIDED LBP Comparison: None Findings: Moderate loss of vertebral height throughout, no fracture or subluxation. Moderate to severe loss of disc height throughout. Soft tissues unremarkable Impression: No acute abnormality. Reviewed, dictated and finalized at location P. Impression: No acute abnormality.
--- NOTE | ~2025-05-13 | XR_ITS ---
EXAMINATION: XR foot RT 2V, 05/13/2025 9:30 CDT HISTORY: PES PLANUS OF BOTH FEET; RT FOOT PAIN COMPARISON: No comparisons available. Findings: Postsurgical changes with fixation of the first metatarsal-phalangeal joint and the second and third metatarsal heads, no acute fracture is identified. No significant degenerative changes. Soft tissues unremarkable. Impression: No acute fracture or malalignment. Reviewed, dictated and finalized at location P. Impression: No acute fracture or malalignment.
--- OUTSIDE RECORDS SUMMARY | 2025-05-13 09:59 | XMS_ITS | Clinical Summary ---
Author Organization [facility] Address [address] [place] [address] Care Team Providers Care Alterations Expert Name Role Phone Sonali Pierce MD Primary Care Provider Allergies No known active allergies Medications amLODIPine (NORVASC) 10 mg tabletIndicatio ns:hypertension Take 10 mg by mouth every morning 7 Active mesalamine (LIALDA) 1.2 gram EC tabletIndicatio ns:Ulcerative Colitis Take 2,400 mg by mouth nightly 0 Active tiZANidine (ZANAFLEX) 4 mg tabletIndicatio ns:back pain Take 4 mg by mouth every 8 (eight) hours as needed for muscle spasms Active HYDROcodone-bao taminophen (NORCO) 5-325 mg per tabletIndicatio ns:Pain,back Pain Take 1 tablet by mouth every 8 (eight) hours as needed for pain Active lisinopril-hydr oCHLOROthiazide (ZESTORETIC) 20-12.5 mg per tabletIndicatio ns:hypertension Take 1 tablet by mouth daily 30 tablet 11 1 Active Additional Information Patient taking differently:1 tablet oralEvery morning, Indications: hypertension, Informant: Self, Reported on 08/12/[address] (VOLTAREN) 75 mg EC tablet 1 Active omeprazole (PriLOSEC) 40 mg capsule 1 Active acetaminophen (TYLENOL) 500 mg tablet Take 1,000 mg by mouth every 6 (six) hours as needed for pain Active ascorbic acid (ascorbic acid with elsa hips) 500 mg tablet,chewable Indications:Vit king C Deficiency Take 500 mg by mouth every morning Active Active Problems Problem Noted Date Diagnosed Date Colitis 09/25/2020 Overview (09/25/2020): Added automatically from request for surgery [id number] No diagnosis on [place] I 09/01/2020 Back pain 09/01/2020 Morbid obesity 09/01/2020 Chronic bilateral low back pain with left-sided sciatica 08/12/2020 Radiculopathy, lumbosacral region 08/12/2020 Lumbosacral spondylosis without myelopathy 08/12 Other obesity due to excess calories 08/12/2020 Surgical History Surgery Date Site/Laterality Comments UMBILICAL HERNIA REPAIR FOOT SURGERY ESOPHAGOGASTRODUODENOSCOPY COLONOSCOPY Medical History Medical History Date Comments Hypertension Ulcerative colitis Diverticulitis Ulcerative colitis Sleep apnea Obesity Back pain Family History Medical History Relation Name Comments Heart attack Brother 1 Heart attack Brother 2 Aneurysm Father Breast cancer Mother Stroke Sister Anesthesia problems Neg Hx Relation Name Status Comments Brother 1 Brother 2 Father Mother Sister Social History Tobacco Use Types Packs/Day Years Used Date Smoking Tobacco: Never Smokeless Tobacco: Never Alcohol Use Standard Drinks/Week Comments Not Currently 0 (1 standard drink = 0.6 oz pur e alcohol) AUDIT-C Answer Date Recorded Q1: How often do you have a drink containing alc ohol? Never 02/18/2021 Average Number of Drinks Not on file 021 Frequency of Binge Drinking Not on file 02/05 Sex and Gender Information Value Date Recorded Sex Assigned at Not on file Legal Sex Male 9:11 AM WEBSITE ADMIN Gender Identity Not on file Sexual Orientation Not on file Obstetrics History Last Filed Vital Signs Vital Sign Reading Time Taken Comments Blood Pressure 115/69 08/12/2021 9:21 AM WEBSITE ADMIN Pulse 72 08/12/2021 9:15 AM WEBSITE ADMIN Temperature 36.3 C (97.3 F) 12/04/2020 8:21 AM CDT Respiratory Rate 18 08/12/2021 9:15 AM WEBSITE ADMIN Oxygen Saturation 97% 08/12/2021 9:15 AM WEBSITE ADMIN Inhaled Oxygen Concentration - - Weight 158 kg (348 lb 5.2 oz) 08/12/2021 9:15 AM WEBSITE ADMIN Height 177.8 cm (5' 10) 08/12/2021 9:15 AM WEBSITE ADMIN Body Mass Index 49.98 08/12/2021 9:15 AM WEBSITE ADMIN Plan of Treatment Health Maintenance Due Date Last Done Comments Depression Screening 1971 Prostate Cancer Screening-PSA 1971 Hepatitis B Screening 1989 Regular Well Visit/Exam 18-64 1989 Zoster Vaccine (1 of 2) 2021 DTaP/Tdap/Td Vaccine (2 - Td or Tdap) 08/08/2024 08/08/2014 Covid-19 Vaccine (3 - 2024-2 6 season) 2025 04/09/2021, 03/19/2021 Influenza Vaccine (#1) 2025 Colon Cancer Screening-Colonoscopy 11/26/2030 11/26/2020 Hepatitis C Screening Completed 12/04/2020 Pneumococcal vaccine <65 Aged Out No longer eligible based on patient's age to complete this topic Procedures Procedure Name Priority Date/Time Associated Diagnosis Comments HEPATITIS PANEL, ACUTE Routine 12/04/2020 9:20 AM CDT Morbid obesity (HCC) COLONOSCOPY 11/26/2020 8:37 AM CDT from Last 3 Months or Most Recently Relevant to Health Maintenance Results * Hepatitis panel, acute (12/04/2020 9:20 AM CDT) Hep A IgM Nonreactive Nonreactive [facility] Comment: Interpretive Data: If Hep A IgM Ab is reported as Equivocal, a new sample should be drawn in two weeks for testing. Current interpretive data was last revised on 19. Testing performed by: [facility], [facility] [facility], [place]., [address] Hep B core IgM Nonreactive Nonreactive [facility] Comment: Interpretive Data If HepB Core IgM Ab is reported as Equivocal, a new sample should be drawn in two weeks for testing. Current interpretive data was last revised on 19. Testing performed by: [facility], [address] [place] [address]., [address] Hep C Ab Nonreactive Nonreactive [facility] Comment: Interpretive Data Nonreactive: Antibodies to HCV not detected. Does NOT exclude the possibility of recent exposure to HCV. Equivocal: Equivocal for HCV antibodies. Supplemental molecular testing will be automatically performed to determine infection status in accordance with current CDC screening recommendations. Reactive: Positive for HCV antibodies. This may represent current or past HCV infection. Supplemental molecular testing will be automatically performed to determine current infection status in accordance with current CDC screening recommendations. Interpretive data was last revised on 2019. Testing performed by: [facility], [address] [place] [address]., [id number] HepBsAg Nonreactive Nonreactive [facility] Comment:Testing performed by : [facility], [address] [place] [address]., [id number] Blood specimen (specimen) 12/04/2020 9:20 AM CDT 12/04/2020 12:12 PM CDT us Phuong Peralta MD LAB MICROBIOLOGY - GENE RAL ORDERABLES Final Result [facility] [id number] [facility]. Department of Laboratories [place], [place] [id number] * COLONOSCOPY (11/26/2020 8:37 AM CDT) Anatomical Region Laterality Modality Other Narrative Procedure Note Uzair Smith MD - 11/26/2020 8:37 AM CDT [facility] Patient Name: Jin Espinal Procedure Date: 11/26/2020 8:37 AM Date of : 1970 Admit Type: Outpatient Age: 50 Gender: Male Attending MD: Uzair Lockwood M.D. Room: [facility] OR POD 5 ROOM 224 Note Status: Finalized Procedure: Colonoscopy Indications: Obtain more precise diagnosis of inflammatory bowel disease Referring MD: Gabriella Guardado M.D. Providers: Uzair Lockwood M.D., Diana Jaramillo M.D. Comorbidities Reported history of ulcerative colitis on mesalamine, however the diagnosis is in question. Medicines: Monitored Anesthesia Care Complications: No immediate complications. Estimated Blood Loss: Estimated blood loss was minimal. Procedure: Pre-Anesthesia Assessment: - The risks and benefits of the procedure and the sedation options and risks were discussed with the patient. All questions were answered and informed consent was obtained. - Immediately prior to administration ofmedications, the patient was re-assessed for adequacy to receive sedatives. The benefits, risks and alternatives of theprocedure and sedation were discussed and informed consentwas obtained. All questions were answered. Please referto the signed informed consent document in the medical record. The colonoscopy was performed without difficulty. The patient tolerated the procedurewell. The quality of the bowel preparation was good. The quality of the bowel preparation was evaluatedusing the BBPS ([place] Bowel Preparation Scale) withscores of: Right Colon = 3 (entire mucosa seen well withno residual staining, small fragments of stool oropaque liquid), Transverse Colon = 3 (entire mucosa seenwell with no residual staining, small fragments of stoolor opaque liquid) and Left Colon = 2 (minor amount of residual staining, small fragments of stool and/or opaque liquid, but mucosa seen well). The totalBBPS score equals 8. The bowel preparation used was polyethylene glycol (PEG). The scope was passedunder direct vision. The CF [id number] Endoscope was introduced through the anus and advanced to the 10cm into the ileum. Findings: The perianal and digital rectal examinations were normal. A localized area of granular mucosa was found in the sigmoid colonand at 45 cm proximal to the anus. Biopsies were taken with a coldforceps for histology. A few small-mouthed diverticula were found in the sigmoid colon. The exam was otherwise normal throughout the examined colon. A scattered area of mucosa in the distal ileum was nodular. Biopsies were taken with a cold forceps for histology. Multiple biopsies were obtained with cold forceps for histologyrandomly from the cecum, ascending, proximal colon (Right), distal transverse, descending (left), sigmoid (as indicated above), and rectum. Impression: - Granularity in the sigmoid colon and at 45 cm proximal to the anus. Biopsied. - Diverticulosis in the sigmoid colon. - Nodular ileal mucosa, likely lymphoidhyperplasia. Biopsied to rule out alternative process. - Multiple biopsies were obtained from the right colon, left colon, sigmoid (as above), andrectum. Recommendation: - Discharge patient to home (ambulatory). - Await pathology results. - Return to referring physician as indicated. Attending Participation: I was present and participated during the entire procedure, including non-blackburn portions. Electronically signed by Uzair Lockwood MD Uzair Lockwood M.D. 11/26/2020 9:38:17 AM Number of Addenda: 0 Note Initiated On: 11/26/2020 8:37 AM Recognized by the [place] [employer] for promoting quality in endoscopy Uzair Lockwood MD ENDOSCOPY PROCEDURES Final Result from Last 3 Months or Most Recently Relevant to Health Maintenance Insurance [facility] MEDICARE ADVANTAGE IDPA IDPA [facility] MEDICARE ADVANTAGE Care Teams Alterations Expert Relationship Specialty Start Date End Date Sonali Pierce MD [address] [address] PCP - General Gastroenterology 03/04/20
--- OUTSIDE RECORDS SUMMARY | 2025-05-13 09:59 | XMS_ITS | Clinical Summary ---
Author Organization [facility] [employer] Address [address] [facility] [place] [address] Care Team Providers Care Acting Instructor Name Role Phone Sonali Pierce MD Primary Care Provider [phone] Source Comments [facility] [employer],non-owned Affiliates and Associated Physician Practices is amultiple site organization consisting of ambulatory clinics and hospital sitesin [place], [place], [place] and [place]. This disclosure is being madepursuant to the Care Everywhere program and may not contain all information available regarding this patient. Last updated 18.Somewhere [employer] Allergies No known active allergies Medications * Be aware that medications may not be up to date on this document. Alwaysverify current medications with the patient. cloNIDine (CATAPRES) 0.2 MG tablet Take 0.2 mg by mouth daily with dinner. 01/19/2017 Active amLODIPine (NORVASC) 10 MG tablet Take 10 mg by mouth DAILY. 01/19/2017 Active lisinopril (PRINIVIL; ZESTRIL) 2.5 MG tablet Take 10 mg by mouth daily with dinner. 01/19/2017 Active traMADol (ULTRAM) 50 MG tablet TK 2 TS PO BID PRN 0 11/15/2018 Active tiZANidine (ZANAFLEX) 4 MG tablet Take 4 mg by mouth 3 times daily 04/22/2020 Active HYDROcodone-bao taminophen (NORCO) 5-325 MG tablet Take 1 tablet by mouth every 6 hours as needed for Pain 28 tablet 05/14/2020 Active mesalamine CR (Pentasa) 500 MG capsule Take 2 (two) capsules by mouth once daily Active Active Problems Problem Noted Date Diagnosed Date Cutaneous abscess 01/19/2017 Family History Medical History Relation Name Comments CVA Father Hypertension Mother Relation Name Status Comments Father Mother Social History Tobacco Use Types Packs/Day Years Used Date Smoking Tobacco: Never Smokeless Tobacco: Never Alcohol Use Standard Drinks/Week Comments No 0 (1 standard drink = 0.6 oz pur e alcohol) Sex and Gender Information Value Date Recorded Sex Assigned at Not on file Legal Sex Male 5:41 AM DIRECTOR OF SPORTS PERFORMANCE Gender Identity Not on file Sexual Orientation Not on file Last Filed Vital Signs Vital Sign Reading Time Taken Comments Blood Pressure 140/92 06/21/2024 1:19 PM DIRECTOR OF SPORTS PERFORMANCE Pulse 80 06/21/2024 1:19 PM DIRECTOR OF SPORTS PERFORMANCE Temperature 36.2 C (97.2 F) 06/21/2024 1:19 PM DIRECTOR OF SPORTS PERFORMANCE Respiratory Rate 20 05/14/2020 12:4 0 PM CDT Oxygen Saturation 96% 06/21/2024 1:19 PM DIRECTOR OF SPORTS PERFORMANCE Inhaled Oxygen Concentration - - Weight 167.6 kg (369 lb 9.6 oz) 06/21/2024 1:19 PM DIRECTOR OF SPORTS PERFORMANCE Height 171.5 cm (5' 7.5) 06/21/2024 1:19 PM DIRECTOR OF SPORTS PERFORMANCE Body Mass Index 57.03 06/21/2024 1:19 PM DIRECTOR OF SPORTS PERFORMANCE Plan of Treatment Health Maintenance Due Date Last Done Comments COLOGUARD (AGES 45-75) - COL ON CA SCREENING 1971 CT COLONOGRAPHY - COLON CA SCREENING 1971 FIT - COLON CA SCREENING 1971 FLEX SIG - COLON CA SCREENING 1971 LIPID TESTING 1971 HIV SCREENING 1986 HEPATITIS C SCREENING 12/27/1988 DTAP/TDAP/TD VACCINES (1 - Tdap) 1990 HEPATITIS B VACCINE (1 of 3 - 19+ 3-dose series) 1990 PNEUMOCOCCAL VACCINE 50+ (1 of 1 - PCV) 2021 ZOSTER VACCINE (1 of 2) 2021 SCREENING FOR DIABETES 06/21/2024 , 01/20/2017, 01/19/2017 DEPRESSION SCREENING 08/08/2024 MEDICARE AWV CALENDAR YEAR 2024 COVID-19 VACCINE (1 - 2023-2 5 season) 2025 INFLUENZA VACCINE (#1) 2025 COLON MONITORING 11/26/2030 11/26/2020 COLONOSCOPY - COLON CA SCREENING 11/26/2030 11/26/2020 Colorectal Cancer Screening 11/26/2030 HIB VACCINE Aged Out No longer eligi ble based on patient's age to complete this topic HPV VACCINE Aged Out No longer eligi ble based on patient's age to complete this topic MENINGOCOCCAL (Group B) VACCINE SHARED DECISION-MAKING Aged Out No longer eligible based on patient's age to complete this topic MENINGOCOCCAL GROUPS A/C/Y/W VACCINE Aged Out No longer eligible b ased on patient's age to complete this topic Medical Devices Implanted Type Area Petroleum Engineer Device Identifier Shelf Expiration Date Model / Serial / Lot Sub Bngf Vitoss Bbtrauma Fm 2.5ml Strl Implanted:Qty: 1 on 05/14/2020 by Jimy Thao DPM at [facility] Right: Foot [employer] 07/05/2021 [id number] / / [id number] Snapoff Screw Implanted:Qty: 2 on 05/14/2020 by Jimy Thao DPM at [facility] Right: Foot [employer] [id number] / / Gw Orth 150mm 1.4mm Unthread Implanted:Qty: 3 on 05/14/2020 by Jimy Thao DPM at [facility] Right: Foot [employer] [id number] / / Screw 3mm 18mm T8 Lck Strdr Tx Head Ti Implanted:Qty: 3 on 05/14/2020 by Jimy Thao DPM at [facility] Right: Foot [employer] [id number] / / Plate 8 Hl Lopro Pin Fx Hl Vrsn V1 Mtp Implanted:Qty: 1 on 05/14/2020 by Jimy Thao DPM at [facility] Right: Foot [employer] [id number] / / Screw 3mm 14mm Std T8 Tx Head Ti Nonster Implanted:Qty: 1 on 05/14/2020 by Jimy Thao DPM at [facility] Right: Foot [employer] [id number] / / Wire K 1.2mm 65mm Smth Troc Tip Fx Olv Implanted:Qty: 1 on 05/14/2020 by Jimy Thao DPM at [facility] Right: Foot [employer] [id number] / / Bone Screw Implanted:Qty: 1 on 05/14/2020 by Jimy Thao DPM at [facility] Right: Foot [employer] [id number] / / Headless Screw Implanted:Qty: 1 on 05/14/2020 by Jimy Thao DPM at [facility] Right: [employer] [id number] / / Explanted Type Area Petroleum Engineer Device Identifier Shelf Expiration Date Model / Serial / Lot Screw 4mm 44mm Comp Hdls Ft/Ankl Bone Implanted:Qty: 1 Explanted:Qty: 1 on 05/14/2020 at [facility] Right: Foot [employer] [id number] / / Procedures Procedure Name Priority Date/Time Associated Diagnosis Comments BASIC METABOLIC PANEL (CALCIUM TOTAL) STAT 05/14/2020 6:58 AM CDT Pre-op examination from Last 3 Months or Most Recently Relevant to Health Maintenance Results * (ABNORMAL) BASIC METABOLIC PANEL (CALCIUM TOTAL) (05/14/2020 6:58 AM CDT) Glucose 110(H) 70 - 105 mg/dL 05/14/2020 7:20 AM CDT [facility] Sodium 138 136 - 145 mmol/L 05/14/2020 7:20 AM CDT [facility] Potassium 4.0 3.5 - 5.1 mmol/L 05/14/2020 7:20 AM CDT [facility] Chloride 103 98 - 107 mmol/L 05/14/2020 7:20 AM CDT [facility] CO2 26 23 - 31 mmol/L 05/14/2020 7:20 AM CDT [facility] Calcium 8.8 8.4 - 10.4 mg/dL 05/14/2020 7:20 AM CDT [facility] Anion Gap 9 8 - 16 mmol/L 05/14/2020 7:20 AM CDT [facility] BUN 17 8.9 - 20.6 mg/dL 05/14/2020 7:20 AM CDT [facility] Creatinine 0.91 0.72 - 1.25 mg/dL 05/14/2020 7:20 AM CDT [facility] eGFR by MDRD >60 >60 mL/min/1.7 3m2 05/14/2020 7:20 AM CDT [facility] eGFR by MDRD >60 >60 mL/min/1.7 3m2 05/14/2020 7:20 AM CDT [facility] Blood BLOOD SPECIMEN / Unknown Venipuncture / Unknown 05/14/2020 6:58 AM CDT 05/14/2020 7:05 AM CDT Jimy Thao [facility] - CHEMISTRY ORD ERABLES Final Result Performing Organization Address City/State/[place] Co de Phone Number [facility] [address] [place] [address] from Last 3 Months or Most Recently Relevant to Health Maintenance Insurance MEDICAID - OUT OF STATE UHC MANAGED MEDICARE ADV [facility] MANAGED MEDICARE ADV Care Teams Acting Instructor Relationship Specialty Start Date End Date Sonali Pierce MD [address] [place] [address] PCP - General 11/22/18
--- OUTSIDE RECORDS SUMMARY | 2025-05-13 09:59 | XMS_ITS | Clinical Summary ---
Author Organization [facility] Address [address] [place] [address] Phone Care Team Providers Care Director Underwriter Sales Name Role Phone Primitivo Pierson MD Primary Care Provider [phone] Social History Tobacco Use Types Packs/Day Years Used Date Smoking Tobacco: Never Assessed Sex and Gender Information Value Date Recorded Sex Assigned at Not on file Legal Sex Male 12:17 AM CDT Gender Identity Not on file Sexual Orientation Not on file Plan of Treatment Health Maintenance Due Date Last Done Comments Hepatitis C Virus (HCV) Screening 1971 TdaP Immunization 1971 Hepatitis B Immunization (1 of 3 - 19+ 3-dose series) 1990 Cologuard 01/02/2016 Colonoscopy 01/02/2016 Colorectal Cancer Screening 01/02/2016 Immunochemical Fecal Occult Blood 01/02/2016 Pneumococcal Immunization (5 0+ years) (1 of 1 - PCV) 2021 Zoster Immunization (1 of 2) 2021 Influenza Immunization (#1) 2025 SARS-COV-2 Immunization ( - season) 2025 Respiratory Syncytial Virus (RSV) Immunization (Adult) (1 - 1-dose 75+ series) 2046 Human Papillomavirus (HPV) Immunization Aged Out No longer eligible b ased on patient's age to complete this topic Meningococcal Immunization (ACWY) Aged Out No longer eligible based on patient's age to complete this topic Rotavirus Immunization Aged Out No lo nger eligible based on patient's age to complete this topic Insurance [facility] Care Teams Director Underwriter Sales Relationship Specialty Start Date End Date Primitivo Pierson MD [address] [place] [address] [place] [address] PCP - General Family Medicine 04/26/16
== END 2025-05-13 09:13 | disposition home or self-care (01) ==
PROVIDERS: PCP Physician Assistant; Visit Provider Physician Assistant
DX: M48.061 Spinal stenosis, lumbar region without neurogenic claudication (principal); M21.41 Flat foot [pes planus] (acquired), right foot; M21.42 Flat foot [pes planus] (acquired), left foot
CPT/HCPCS: 72100; 73620